=== PATIENT | female | born 1985 | race Caucasian/White ===

== ENCOUNTER 2021-07-06 15:49 | Emergency (ER) | payer OTHER, SELFPAY ==
[2021-07-06 15:56] VITALS: BP 148/84; PULSE 70; RESP 20; TEMP 36.8; O2SAT 100
--- NOTE | 2021-07-06 16:06 | ED.EAR ---
HPI - Ear Problem General Chief complaint: Ear Stated complaint: ear pain Time Seen by Provider: 07/06/21 16:03 Source: patient and RN notes reviewed Mode of arrival: ambulatory Limitations: no limitations History of Present Illness HPI Narrative: Celeste is a 35-year-old female patient who ambulated into the [facility]. Patient states on Thanksgiving she had pain in her right ear that lasted several days. It did get better. Patient states for the last week her ear has felt full and wet and itchy. Patient has been taking Benadryl. Patient states she had a friend look in her ear with out an otoscope and said that there were black blisters on her ear. MD Complaint: ear pain Related Data Allergies Allergy/AdvReac Type Severity Reaction Status Date / Time No Known Allergies Allergy Unknown Unverified 07/06/21 16:04 Review of Systems Review of Systems: CONSTITUTIONAL: Denies body aches, fever, chills, or sweats. EYES: Denies visual changes, redness, or discharge. ENT: Denies rhinorrhea, congestion, sore throat, o+ right otalgia. CARDIOVASCULAR: Denies chest pain, palpitations, or edema. RESPIRATORY: Denies cough or dyspnea. GASTROINTESTINAL: Denies abdominal pain, nausea, vomiting, or diarrhea. GENITOURINARY: Denies dysuria or hematuria. SKIN: Denies rash, itching, or wounds. MUSCULOSKELETAL: Denies back pain, joint pain, or myalgia. NEUROLOGIC: Denies headache, numbness, tingling, or weakness. PSYCH: Denies depression or anxiety. All systems reviewed & are unremarkable except as noted in HPI and below PMFSH Comments At time of signature, I have reviewed and agree with nursing past medical, surgical, social and family history unless otherwise noted. Please see nursing chart for further information. There is no relevant family history pertinent to the presenting complaint Exam Narrative: GENERAL: Well-appearing, well-nourished, and in no acute distress. HEAD: Normocephalic, atraumatic. EYES: EOMI. No redness or drainage. Conjunctivae normal. ENT: Mucous membranes pink and moist. Nares clear. No rhinorrhea. Bilateral tympanic membranes are dull with moderate bulging. No erythema is noted. Dark brown cerumen is noted in the right canal Throat normal. Uvula midline. NECK: Normal AROM. Supple. CHEST: No respiratory distress. MUSCULOSKELETAL: No bony tenderness. EXTREMITIES: Normal range of motion. No edema. SKIN: Warm, dry, no rash. Capillary refill normal. Normal skin turgor. NEURO: No focal deficits. Alert and oriented x3. Gait steady. PSYCH: Normal affect. No signs of depression or anxiety. Course Vital Signs Vital signs: Vital Signs Temperature 36.8 C 07/06/21 15:56 Pulse Rate 70 07/06/21 15:56 Respiratory Rate 20 07/06/21 15:56 Blood Pressure 148/84 H 07/06/21 15:56 Pulse Oximetry 100 07/06/21 15:56 Temperature 36.8 C 07/06/21 15:56 Pulse Rate 70 07/06/21 15:56 Respiratory Rate 20 07/06/21 15:56 Blood Pressure 148/84 H 07/06/21 15:56 Pulse Oximetry 100 07/06/21 15:56 Reviewed. Pt has been instructed to follow up with her PCP regarding her elevated blood pressure today. Medical Decision Making MDM Narrative Medical decision making narrative: Patient has a moderate amount of fluid in bilateral ears. No erythema is noted. This has been going on since . Patient will be treated with a short course of prednisone Differential Diagnosis Differential Diagnosis: Otitis media, otitis externa, eustachian tube dysfunction Vital Signs Vital Signs: Vital Signs Temperature 36.8 C 07/06/21 15:56 Pulse Rate 70 07/06/21 15:56 Respiratory Rate 20 07/06/21 15:56 Blood Pressure 148/84 H 07/06/21 15:56 Pulse Oximetry 100 07/06/21 15:56 Temperature 36.8 C 07/06/21 15:56 Pulse Rate 70 07/06/21 15:56 Respiratory Rate 20 07/06/21 15:56 Blood Pressure 148/84 H 07/06/21 15:56 Pulse Oximetry 100 07/06/21 15:56 Critical Care Time Cri
== END 2021-07-06 16:15 | disposition home or self-care (01) ==
PROVIDERS: Emergency Provider Nurse Practitioner Family
DX: H65.21 Chronic serous otitis media, right ear (principal)
CPT/HCPCS: 99213; G0463

== ENCOUNTER 2022-07-13 09:05 | Outpatient (CLI) | payer OTHER, SELFPAY ==
--- NOTE | 2022-07-13 09:13 | ECG_ITS ---
Measurements Intervals [place] Rate: 73 P: 24 SC: 147 QRS: 37 QRSD: 88 T: 56 QT: 362 QTc: 400 Interpretive Statements SINUS RHYTHM NORMAL ECG NO PREVIOUS ECG AVAILABLE FOR COMPARISON Electronically Signed On 07-13-2022 9:38:36 TILER'S ASSISTANT by Vasquez Amaya D.O.
== END 2022-07-13 09:06 | disposition home or self-care (01) ==
PROVIDERS: Visit Provider Obstetrics & Gynecology
DX: F17.200 Nicotine dependence, unspecified, uncomplicated (principal); N94.6 Dysmenorrhea, unspecified
CPT/HCPCS: 36415; 86850; 86900; 86901; 93005

== ENCOUNTER 2022-07-20 00:56 | Day surgery (SDC) | payer OTHER, SELFPAY ==
--- NOTE | 2022-07-12 09:13 | PC.NURSE ---
Addendum entered by Erika Landers RN 07/12/22 09:40: PT CALLED BACK WITH MEDICATIONS, INSTRUCTED NOT TO TAKE ANY OF HER MEDICATIONS THE MORNING OF SURGERY, NO MEDICATIONS THAT NEED TO BE STOPPED Original Note: Report to the Outpatient Waiting Room, entrance under the green pavilion located off [facility], at time _0830_ on date 07/20/22_. Planned Procedure Time: _1030_. Time changes happen often and if your time is changed the preop area will call you the afternoon before. - You and your visitor will be asked to self-screen and do not enter if you have any COVID symptoms. - Only one visitor is requested with a max of two and NO children visitors are allowed at this time. - The patient visitor may be requested to leave or wait in car when not with patient due to distancing restrictions. - A mask is optional within the hospital. Patients may have clear liquids (water, carbonated beverages, clear teas, apple juice) until 3 hours prior to surgery with a maximum of 20 ounces. - No food from midnight until time of surgery - Infants may have breast milk until 4 hours before surgery, infant formula 6 hours prior to surgery. - Children will be allowed to drink immediately following surgery. If applicable, please bring a bottle or sippy cup to assist with drinking. Juice, water, soda, and popsicles are readily available. For infants on formula, please bring formula the day of surgery. Pacifiers are allowed. Take the following medications with a SIP of water the morning of surgery: _PT DID NOT HAVE MED LIST WILL BE CALLING BACK WITH MEDICATIONS____ Medications to discontinue per physician Date to take last dose Please no make-up, nail korean, hairspray, perfume, deodorant, or body powder the day of surgery. No jewelry (including any body piercings) or valuables the day of surgery, leave them at home. Please take a shower or bath the night before, or the morning of, surgery with an antibacterial soap. Wear comfortable, loose fitting clothing. Children are encouraged to wear pajamas. - Jewelry must be removed prior to entering the operating room. Rings and piercings that are not removed may be cut off. - The hospital will not accept responsibility for valuables. - Please leave all valuables, including medications, at home the day of surgery. If you are going home after surgery, a licensed auto crane driver must drive you home. - NO public transportation without another adult if you receive anesthesia. - We recommend that an adult stay with you for 24 hours following discharge. - We also recommend that you do not drive, make important decision, drink alcoholic beverages, or take any drugs that were not prescribed by your health care provider for at least 24 hours after your discharge time. For Pediatric surgeries, we recommend two adults accompany the child home. Follow any additional instructions given to you from your surgeon. If you or anyone in your household have experienced Covid symptoms in the past week, please notify your surgeon or the nurse liaison at the phone number below for possible testing. Telephone instructions given to _BEER__and asked if any additional questions and then verbalized understanding. Patient advised to call surgeon office or pre surgery nurse liaison [phone] if any additional questions.
[2022-07-20] VITALS (8 sets, daily range): BP systolic 112–149; BP diastolic 64–101; PULSE 60–87; RESP 11–18; TEMP 36.1–36.9; O2SAT 95–100; BMI 40.4
--- NOTE | 2022-07-20 08:47 | P.PNAN_ITS ---
Anes - Initial Pre Proc Eval Procedure: Operation Date: 07/20/22 10:30 Proposed Procedures p Robotic Assisted Hysterectomy with Bilateral Salpingo Oophorectomy - Yasmine Lisa MD Date/Time: 07/20/22 08:47 Surgeon: Yasmine Lisa MD Pre Op Diagnosis: dysmenorrhea Patient Data Age: 36 Gender: F Height: Weight: Allergies Allergy/AdvReac Type Severity Reaction Status Date / Time No Known Allergies Allergy Unknown Unverified 07/20/22 08:46 Home Medications Medication Instructions Recorded Confirmed Type doxycycline hyclate 100 mg tablet 100 mg PO BID 07/12/22 07/12/22 History metformin 500 mg tablet 1,000 mg PO DAILY 07/12/22 07/12/22 History spironolactone 100 mg tablet 100 mg PO DAILY 07/12/22 07/12/22 History Patient hx anesthesia problems: none Family hx anesthesia problems: none Results Review: All pre-operative results and documents have been reviewed as part of the pre- operative evaluation. [facility] Past Medical History Medical History Obesity Smoker Surgical History Surgical History (Updated 07/20/22 @ 08:48 by Steven Myers MD) History of tubal ligation Social History Social History Smoking packs per day: 1 Smoking cigarettes per day: 20.0 Years smoked: 20 Smoking pack-years: 20.00 Smoking status: Current every day smoker Alcohol intake: current Alcohol use details: 4 PER YEAR Substance use: current Substance use type: marijuana Other substance usage details: DAILY Living arrangements: with family Anes - Eval Final PreProcedure Day of Procedure 07/20/22 08:47 Patient weight: obese Heart: regular rate and rhythm Lungs: clear to auscultation Airway: Mallampati scale class 1 Neurological: alert and oriented Last oral intake: >/= 8 hours ASA classification: III Emergent: no Anesthetic plan: proceed Anesthesia type and monitoring: general ETT and standard monitoring Results Review: All pre-operative results and documents have been reviewed as part of the pre- operative evaluation. Informed Consent: The patient's anesthetic plan and its attendant risks and benefits were discussed with the patient/family/POA. Questions were solicited and answers provided to the satisfaction of the patient/family/POA.
--- NOTE | 2022-07-20 09:06 | WPDHPUPDATE1 ---
History and Physical Update Update Date/Time: 07/20/22 09:06 History and Physical has been reviewed, including an updated exam of the patient. There are NO changes in the patient's condition. Risks, benefits, and alternatives have been discussed and questions answered. Patient agrees to proceed with procedure.
[2022-07-20] MEDS: LACTATED RINGERS 1,000 ML 30 ML IV CONT ×2 (09:15→14:04)
[2022-07-20] MEDS: KETOROLAC 15 MG/ML VIAL (*BKC) IV PUSH (09:16)
[2022-07-20] MEDS: ACETAMINOPHEN 500 MG TABLET 1000 MG PO (09:16)
[2022-07-20] MEDS: ceFAZolin 3 GM/D5W 100 ML 100 ML IVPB (09:45)
--- NOTE | 2022-07-20 14:07 | W.PM.PROC2 ---
Procedure Note - Detailed Date of Procedure 07/20/22 Pre-op Diagnosis dysmenorrhea, Post-op Diagnosis Same (Severe pelvic adhesions) Procedure Performed robotic assisted hysterectomy with bilateral salpingo-oophorectomy, adhesiolysis 2.5 hours Surgeon Yasmine Lisa MD Anesthesia General Indications heavy vaginal bleeding, pelvic pain Findings severe scarring throughout the pelvis, unrecognizable adnexal structures, tubes and ovaries were scarred together with pericolic fat. Adhesions between the rectum and the bilateral adnexa and the posterior uterus. Obliterated cul-de-sac with adhesions. Adhesions between the sigmoid colon and the lateral pelvic and abdominal sidewall Description of Procedure This patient was taken to the operating room. She was prepped and draped in the dorsal lithotomy position after induction of general anesthesia. The uterine manipulator and Jacqueline cup were placed. This was done with a speculum and tenaculum. The speculum was placed. The cervix was grasped with a tenaculum. The stay sutures were placed at 3 and 9:00 a.m.. The stay sutures of 0 Vicryl were tied to the appropriately Size scope after it was slipped around the cervix.. The tip of the BRENNA manipulator was placed in the intrauterine cavity. The cup was slid into place around the cervix and into the fornices. It was locked into place. The sutures were then wrapped around the handle and tied under tension. A 8 mm skin incision was made in the left upper quadrant the abdomen. a 5 mm Visiport trocar was inserted into abdominal cavity and pneumoperitoneum was achieved. A 8 mm supraumbilical incision was made and a 8 mm trocar was inserted into the intrauterine cavity under direct visualization of the scope. an 8 mm incision was made in the right upper quadrant of the abdomen and an 8 mm robotic trocar was placed the inter uterine cavity under direct visualization the scope. An 11 mm trocar was inserted in the right upper quadrant of the abdomen rectal is a hysteroscope after an incision was made there as well. The robot was docked. Electronic Orientation of the robot was performed. 2.5 hours of adhesiolysis was performed rectum from bilateral adnexa and uterus, tubes and ovaries from the lateral pelvic sidewall and the ureters bilaterally. colon from the lateral abdominal and pelvic sidewalls. This was all done with sharp and blunt dissection using cautery and scissors and bipolar cautery. Bilateral ureteral lysis was performed. This was done from the pelvic brim down to the uterine artery. This was done with careful dissection using sharp and blunt dissection.Bilateral salpingo-oophorectomy was performed. The bilateral infundibulopelvic ligaments were cauterized thoroughly and transected after visualization of the ureter passing over the pelvic brim. In stepwise fashion around the ovary the mesosalpinx was cauterized transected. The Fallopian tube tissue/ mesosalpinx was cauterized transected a stepwise fashion medially to the cornua of the uterus. the tube was transected at the cornua and cauterized thoroughly. The bilateral tubes and ovaries were taken out through the large air lock port. Then In a stepwise fashion along the lateral aspects of the uterus the round ligament and broad ligaments were cauterized transected down to the level of the uterine arteries. A bladder flap was created in the bladder was moved distally to the end of the cervix and over the Jacqueline cup. The bilateral uterine arteries were cauterized and transected. Colpotomy was then performed. In a circumferential fashion the vagina was transected using unipolar cautery. The incision was made down on the Jacqueline cup. The uterus and cervix were taken out through the vagina. A pneumo occluder was placed in the vagina. The vaginal cuff was closed with a 0 V lock suture in a running fashion. The pelvis was irrigated with copious amounts antibiotic irrigatio
[2022-07-20] MEDS: fentaNYL CITRATE INJ (*CRX) 100 MCG/2 ML VIAL 25 MCG IV PUSH ×8 (14:11→15:05)
[2022-07-20] MEDS: ONDANSETRON INJ 4 MG/2 ML VIAL IV PUSH ×2 (14:33→20:12)
[2022-07-20] MEDS: DEXTROSE 5%/0.45% SOD CHL 1,000 ML 125 ML IV CONT (15:30)
[2022-07-20] MEDS: SCOPOLAMINE 1.5 MG PATCH TRANSDERM (16:30)
[2022-07-20] MEDS: KETOROLAC 30 MG/ML VIAL (*BKC) IV PUSH ×2 (16:34→21:33)
[2022-07-20] MEDS: MORPHINE SULFATE (*CRX) 4 MG/ML INJ IV PUSH ×2 (17:30→21:34)
--- NOTE | 2022-07-20 17:51 | PC.NURSE ---
1730 Pt cursing at RN due to RN waking her up to ask her to extend arm so that IV fluids would infuse. RN ask that patient not use that type of language when addressing staff and explained that the interventions were to help her, not make her more uncomfortable.
[2022-07-21 01:00] VITALS: BP 128/77; PULSE 70; RESP 18; TEMP 36.7; O2SAT 100
[2022-07-21] MEDS: SIMETHICONE 80 MG TAB.CHEW ×2 (01:16→04:23)
[2022-07-21] MEDS: HYDROcodone/acetaminophen (*CRX) 10-325 MG TABLET 1 TAB PO (01:31)
[2022-07-21] MEDS: HYDROcodone/acetaminophen (*CRX) 5-325 MG TABLET 1 TAB PO ×2 (04:22→08:30)
[2022-07-21] MEDS: IBUPROFEN 600 MG TABLET PO (04:23)
[2022-07-21 04:35] VITALS: BP 129/59; PULSE 88; RESP 18; TEMP 36.8; O2SAT 99
[2022-07-21 08:30] VITALS: BP 130/68; PULSE 61; RESP 18; TEMP 36.6; O2SAT 100
[2022-07-21] MEDS: ESTRADIOL 7 DAY 0.05 MG PATCH TRANSDERM (08:33)
--- NOTE | 2022-07-21 09:16 | WPDANESPN ---
Anes - Prog Note Post-Op Date/Time: 07/21/22 09:16 Cardiovascular status: normal Respiratory status: normal Airway patency: baseline Mental status: baseline Post-Op hydration status: normal Vital Signs: Last Vital Signs Temp 36.8 C 07/21/22 04:35 Pulse 88 07/21/22 04:35 Resp 18 07/21/22 04:35 BP 129/59 L 07/21/22 04:35 Pulse Ox 99 07/21/22 04:35 O2 Del Method Room Air 07/20/22 15:30 O2 Flow Rate 6 07/20/22 14:15 Pain Score (VAS): 3 I/O: Intake & Output 07/20/22 07/21/22 07/21/22 23:59 07:59 15:59 Intake Total 0 700 Output Total 350 1350 Balance -350 -650 Post-procedural complaints: none Patient Feedback: Patient satisfied with anesthetic care.
--- NOTE | 2022-07-21 10:29 | PM.GYNPNOP ---
BOOKKEEPING CLERKS SUPERVISOR - A/P Postoperative Procedures: Procedures Operation Date: 07/20/22 10:30 Actual Procedure Side Surgeon p Robotic Assisted Hysterectomy with Bilateral Salpingo Oophorectomy Bilateral Yasmine Lisa MD Postoperative day: 1 Postoperative status: doing well Postoperative plan: see orders Time Spent With Patient Time: Total time spent is greater than 50% in coordination of care (as documented) at patient's floor/unit and/or counseling patient: Time with patient: 15 - 25 minutes BOOKKEEPING CLERKS SUPERVISOR- PN:Subj Post-Op Subjective Date/time seen: 07/21/22 10:29 Subjective: patient reports feeling better, patient has no complaints and pain is well controlled Exam Const: General: healthy appearing, comfortable and no acute distress Resp: Auscultation: clear to auscultation bilaterally, no rales, no rhonchi and no wheezes Cardio: Rate: regular rate Heart sounds: no click, no murmurs and no rubs GI: Inspection: non-distended Auscultation: normal bowel sounds Extrem: General: normal to inspection, no pedal edema and no calf tenderness BOOKKEEPING CLERKS SUPERVISOR - PN: Obj Data Vital Signs Vital Signs: Vital Signs - 24 hr 07/20/22 14:04 07/20/22 14:15 07/20/22 14:30 Temperature 98.5 F Pulse Rate 73 87 76 Respiratory Rate 11 L 17 14 Blood Pressure 149/101 H 117/81 115/65 Pulse Oximetry 100 100 95 Oxygen Delivery Simple Face Mask Simple Face Mask Room Air Oxygen Flow Rate 6 6 07/20/22 14:45 07/20/22 15:00 07/20/22 15:30 Temperature Pulse Rate 72 75 75 Respiratory Rate 12 12 12 Blood Pressure 125/71 112/73 Pulse Oximetry 95 100 100 Oxygen Delivery Room Air Room Air Room Air Oxygen Flow Rate 07/20/22 15:30 07/20/22 20:00 07/21/22 01:00 Temperature 97.3 F L 97.1 F L 98.1 F Pulse Rate 78 60 70 Respiratory Rate 18 18 18 Blood Pressure 138/77 137/64 128/77 Pulse Oximetry 100 100 100 Oxygen Delivery Oxygen Flow Rate 07/21/22 04:35 07/21/22 08:30 07/21/22 08:30 Temperature 98.3 F 97.8 F Pulse Rate 88 61 Respiratory Rate 18 18 Blood Pressure 129/59 L 130/68 Pulse Oximetry 99 100 Oxygen Delivery Room Air Oxygen Flow Rate Intake/Output Intake/Output: Intake & Output 07/18/22 07/19/22 07/20/22 07/21/22 23:59 23:59 23:59 23:59 Intake Total 700 700 Output Total 1270 1350 Balance -570 -650 Meds/Results Medications: Active Medications Generic Name Dose Route Start Last Admin Trade Name Freq PRN Reason Stop Dose Admin Hydrocodone Bitart/Acetaminophen 1 tab 07/20/22 15:13 07/21/22 08:30 Hydrocodone/Acetaminophen (*Crx) 5-325 Mg Tablet PO 1 tab Q3H PRN Administration Pain Rated 5 or Less Hydrocodone Bitart/Acetaminophen 1 tab 07/20/22 15:13 07/21/22 01:31 Hydrocodone/Acetaminophen (*Crx) 10-325 Mg Tablet PO 1 tab Q3H PRN Administration Pain Rated 6 or Greater Estradiol 0.05 mg 07/20/22 15:13 07/21/22 08:33 Estradiol 7 Day 0.05 Mg Patch TRANSDERM 0.05 mg WEEKLY MATTY Administration Ibuprofen 600 mg 07/20/22 15:13 07/21/22 04:23 Ibuprofen 600 Mg Tablet PO 600 mg Q6H PRN Administration Cramping Ketorolac Tromethamine 30 mg 07/20/22 15:13 07/20/22 21:33 Ketorolac 30 Mg/Ml Vial (*Bkc) IV PUSH 07/25/22 15:12 30 mg Q6H PRN Administration Pain Rated 4-6 Morphine Sulfate 4 mg 07/20/22 17:22 07/20/22 21:34 Morphine Sulfate (*Crx) 4 Mg/Ml Inj IV PUSH 4 mg Q4H PRN Administration Pain Rated 7-10 Naloxone HCl 0.1 mg 07/20/22 15:13 Naloxone Hcl 0.4 Mg/Ml Vial IV PUSH Q2M PRN Respiratory rate less than 10 Ondansetron HCl 4 mg 07/20/22 15:13 07/20/22 20:12 Ondansetron Inj 4 Mg/2 Ml Vial IV PUSH 4 mg Q6H PRN Administration Nausea And Vomiting
== END 2022-07-21 10:55 | disposition home or self-care (01) ==
LOC: ANHSURGERY 08:28 → ANHOB2 15:19
PROVIDERS: PCP Nurse Practitioner Family; Visit Provider Obstetrics & Gynecology
PROC: (CPT 58571; principal; 2022-07-20 10:30)
DX: N94.6 Dysmenorrhea, unspecified (principal); N92.0 Excessive and frequent menstruation with regular cycle; R10.2 Pelvic and perineal pain; N73.6 Female pelvic peritoneal adhesions (postinfective); D25.9 Leiomyoma of uterus, unspecified; E66.9 Obesity, unspecified; Z68.41 Body mass index [BMI] 40.0-44.9, adult; F17.210 Nicotine dependence, cigarettes, uncomplicated; F10.90 Alcohol use, unspecified, uncomplicated; F12.90 Cannabis use, unspecified, uncomplicated; Z79.1 Long term (current) use of non-steroidal anti-inflammatories (NSAID); Z79.899 Other long term (current) drug therapy
CPT/HCPCS: 58571; S2900; 88307; 99199; A9270; J0690; J1100; J1885; J2250; J2270; J2405; J2704; J2710; J3010; J7030; J7120

== ENCOUNTER 2023-11-19 20:02 | Emergency (ER) | payer OTHER, SELFPAY ==
--- NOTE | ~2023-11-19 | XR_ITS ---
EXAM: XR elbow LT min 3V DATE: 11/19/2023 20:20 HISTORY: hit elbow on car door 11-16-23 . COMPARISON: None available. FINDINGS: Normal mineralization. No fracture or dislocation. No lytic or blastic lesion. Joint space s are maintained. No erosion or periosteal change. Soft tissues within normal limits. IMPRESSION: Normal left elbow radiograph findings. Reviewed, dictated and finalized at location K.
[2023-11-19 20:05] VITALS: BP 144/91; PULSE 86; RESP 20; TEMP 36.3; O2SAT 98
--- NOTE | 2023-11-19 20:10 | ED.UPPEXIN ---
HPI - Extremity Injury (Upper) General Chief Complaint: Extremity Injury, Upper Stated Complaint: left elbow pain Source: patient Mode of arrival: ambulatory Limitations: no limitations History of Present Illness HPI narrative: 37 years old white female drove herself to the emergency room complaining of pain at the back of left elbow after got hit by her car door while trying to close a door. She denies other injuries. Four days ago. Patient denies any tingling, numbness or weakness of the upper extremity. Related Data Home Medications Medication Instructions Recorded Confirmed doxycycline hyclate 100 mg tablet 100 mg PO BID 07/12/22 07/20/22 metformin 500 mg tablet 1,000 mg PO DAILY 07/12/22 07/20/22 spironolactone 100 mg tablet 100 mg PO DAILY 07/12/22 07/20/22 Allergies Allergy/AdvReac Type Severity Reaction Status Date / Time No Known Allergies Allergy Unknown Unverified 07/20/22 08:46 Review of Systems Review of Systems: All systems reviewed & are unremarkable except as noted in HPI and below PMFSH Past Medical History Medical History Obesity Smoker Surgical History Surgical History History of tubal ligation Social History Social History Smoking packs per day: 1 Smoking cigarettes per day: 20.0 Years smoked: 20 Smoking pack-years: 20.00 Smoking status: Current every day smoker Alcohol intake: current Alcohol use details: 4 PER YEAR Substance use: current Substance use type: marijuana Other substance usage details: DAILY Living arrangements: with family Exam Narrative: General appearance: Well-developed, well-nourished Skin: Normal color Vascular: Normal peripheral pulses, normal capillary refill. 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 Critical Care Time Critical Care Time Critical Care Time: No Discharge Plan Discharge Clinical Impression: Contusion of elbow, left Patient Disposition: Home, Self-Care Condition: Stable Instructions: Contusion in Adults (ED) Additional Instructions: Return if symptoms are worsening , call your family physician for appointment, take Tylenol as as needed for aches and pain, continue home medications. take ibuprofen 600 every 6 hours as needed Prescriptions: No Action metformin 500 mg Tablet 1,000 mg PO DAILY Rx Instructions: FOR OVARIAN CYSTS spironolactone 100 mg Tablet 100 mg PO DAILY doxycycline hyclate 100 mg Tablet 100 mg PO BID hydrocodone-acetaminophen 5-325 mg tablet 1 - 2 tablet PO Q6H PRN (Reason: pain) Qty: 25 0RF Follow-up/Referrals: Darci,Carrie Lentz APN [Primary Care Provider] -
[2023-11-19 20:40] VITALS: BP 144/91; PULSE 78; RESP 20; TEMP 36.3; O2SAT 98
== END 2023-11-19 20:40 | disposition home or self-care (01) ==
LOC: CHSED 20:42
PROVIDERS: Emergency Provider Emergency Medicine; PCP Nurse Practitioner Family
DX: S50.02XA Contusion of left elbow, initial encounter (principal); W20.8XXA Other cause of strike by thrown, projected or falling object, initial encounter; E66.01 Morbid (severe) obesity due to excess calories; Z68.41 Body mass index [BMI] 40.0-44.9, adult; F17.210 Nicotine dependence, cigarettes, uncomplicated; F12.90 Cannabis use, unspecified, uncomplicated; Z79.84 Long term (current) use of oral hypoglycemic drugs
CPT/HCPCS: 73080; 99283

== ENCOUNTER 2025-01-13 12:24 | Emergency (ER) | payer SELFPAY ==
--- OUTSIDE RECORDS SUMMARY | 2025-01-13 12:27 | XMS_ITS | Data Portability ---
Author Organization [facility] JOSELOVinceLadonia H Address [address] [place] [id number] Care Team Providers Care Customer Account Technician Name Role Phone [facility] SATNAM DAO Pipe Fitter Helper PEGGY RAVI Primary Care Provider Unavail able Assessment Encounter Date Assessment Date Assessment LastModified by Organization Details LastModified Time 05/18/2024 05/18/2024 Tdap immunization offered patient agreeable. Unfortunately, due to office low supply; Tdap vaccine is being reserved for and children. Recommend contacting pharmacy of choice. I personally saw and examined pt w/resident. Documentation was reviewed, and I agree w/resident's note. Dr. Purcell [email or web address] Not available 05/19/2024 14:06:41 Plan of Treatment Reminders Order Date Submit Date Provider Last Modified By Organization Details Last Modified Time Details Appointments None recorded . Lab urinalys is, dipstick 2023 024 In-Office Order, Internal Use Only DO Not Attach Compendium DO Not Attach Compendium, Do Not Delete/merge, [id number] 13:05:28 culture, urine 2023 024 [facility], [address], [place], [address], 4 09:27:52 HbA1c (hemoglo bin A1c), blood 2023 024 [facility], [address], [place], [address], 4 04:09:32 CMP, serum or plasma 2023 024 [facility], [address] [facility], [facility] [address], [place], [address], 4 03:08:38 TSH, ultra-se nsitive, serum 2023 024 [facility], [address] [facility] [address], [place], [address], 4 04:09:31 CBC 2023 024 [facility], [address] [facility], [facility] [address], [place], [address], 4 03:08:39 lipid panel, serum 2023 024 [facility], [address] [facility] [address], [place], [address], 4 03:08:37 Referral dermatol ogist referral 2024 025 [facility] (D[facility]ology Cam), [address] [place] [address], [place], [address], 5 08:42:02 pain manageme nt referral - No back imaging on file 2023 024 [facility], [address] [facility], [place], [address], 5 12:50:26 Procedures None recorded . Surgeries None recorded . Imaging CT, head + brain, w/o contrast 2023 024 [email or web address] Rudd (Radiology), [address] [facility] [place], [address], 4 09:36:08 XR, foot, 3 or more view 2023 024 KANA Rudd (Radiology), [address] [facility] [place], [address], 4 17:58:43 Medication Orders clindamy geovanna 1 % topical gel 2023 025 [facility][id number], [address], [place], [place], [id number], 5 09:02:54 doxycycl ine monohydr ate 100 mg capsule 2023 024 [facility] #89806, [address], [place], [place], [id number], 4 16:50:28 Macrobid 100 mg capsule 2023 [facility] #[id number], [address], [place], [place], [id number], 4 16:41:25 Medrol ([place]) 4 mg tablets in a dose pack 2023 [facility] #66509, [address], [place], [place], [id number], 4 16:40:42 cycloben zaprine 10 mg tablet 2023 024 [facility], [address], [place], [place], [id number], 4 14:04:22 naproxen 500 mg tablet [email or web address] [facility] #24083, [address], [place], [place], [id number], 5 10:08:38 Patient TargetsNo targets recorded. Patient Instructions Encounter Date Encounter Id Patient Instructions Last Modified By Organization Details Last Modified Time 10/22/2023 [id number] learning about high blood sugar Not available 10/22/2023 09:16:22 A healthy lifestyle: care instructions Not available 10/22/2023 09:16:22 Quitting Tobacco : Care Instructions Not available 10/22/2023 09:18:19 - Avoid heavy lifting and over-exertion. - Avoid bed-rest do some gentle stretching and continue with normal activities. - Use ice to relieve pain, 15 minutes every 2 4 hours. - Use heat to relax muscles, 15 minutes every 2 4 hours. - Sleep on a firm surface and avoid lying on the sofa. Not available 10/22/2023 09:16:30 dwp labs needed, plan pending results Not available 10/22/2023 09:16:42 01/07/2024 [id number] painful urinatio n (dysuria): care instructions [email or web address] Not available 01/07/2024 13:05:28 Rest- Rest your injured body part. Ice Apply a cold gel pack, bag of ice, or bag of frozen vegetables every 1 to 2 hours, for 15 minutes each time. Put a thin towel between the ice (or other cold object) and your skin. Use the ice (or other cold object) for at least 6 hours after your injury. Some people find it helpful to ice longer, even up to 2 days after their injury. Compression Compression basically means pressure. You want to have slight pressure by having it wrapped in an elastic compression bandage. It's important that you do not use too much pressure and cut off the blood flow to body part. Elevation Elevation means you should keep your injury body part raised up above the level of your heart. Not available 01/13/2024 15:27:57 follow up as needed Not available 01/13/2024 15:28:19 04/08/2024 [id number] A healthy lifestyle: care instructions Not available 04/08/2024 17:03:00 Increase intake of fresh fruits, and vegetables. Avoid packaged foods and fast foods. Follow a low salt diet, drink at least 8-10 8oz glasses of water a day, exercise most days of the week. Take all medications as prescribed. Keep appointments with PCP and all specialists. Not available 04/27/2024 18:12:48 Plan pending imaging results. f/u as needed DWP barriers to care: none Not available 04/27/2024 18:13:01 05/18/2024 [id number] Quitting Tobacco : Care Instructions [email or web address] Not available 05/18/2024 15:16:45 A healthy lifestyle: care instructions Not available 05/18/2024 15:16:45 08/18/2024 [id number] Quitting Tobacco : Care Instructions [email or web address] Not available 08/18/2024 10:06:57 A healthy lifestyle: care instructions [email or web address] Not available 08/18/2024 10:06:57 I saw the patien t with the resident. 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 Referral for H idradenitis suppurativa of multiple sites Referring Physician: Peggy Rai Hotbed Operator, Encounter Date: 08/18/2024 Results Created Date Observation Date Name Description Value Unit Range Abnormal Flag Note LastModifiedBy Organization Detail LastModifiedTime 10/22/19 24 10/22/2023 LIPID PANEL cholesterol, total 218 mg/dL 100-19 9 above high normal Not Available [facility] Department [address] [place], [address], 10/23/2023 03:08:37 10/22/19 24 10/22/2023 LIPID PANEL triglyceride s 115 mg/dL 0-149 Not Available [facility] Department [address] [place], [address], 10/23/2023 03:08:37 10/22/19 24 10/22/2023 LIPID PANEL HDL cholesterol 46 mg/dL 40-999 Not Available [facility] Department [address] [place], [address], 10/23/2023 03:08:37 04/16/20 24 10/22/2023 LIPID PANEL VLDL cholesterol neno 23 mg/dL 5-40 Not Available [facility] Department [address] [place] [address], [address], 10/23/2023 03:08:37 10/22/19 24 10/22/2023 LIPID PANEL LDL chol calc (nih) 164 mg/dL 0-99 above high normal Not Available [facility] Department [address] [place] [address], [address], 10/23/2023 03:08:37 10/22/19 24 10/22/2023 COMP. METAB OLIC PANEL (14) glucose 90 mg/dL 70-99 Not Available [facility] Department [address] [place] [address], [address], 10/23/2023 03:08:38 10/22/19 24 10/22/2023 COMP. METAB OLIC PANEL (14) BUN 16 mg/dL 6-20 Not Available [facility] Department [address] [place] [address], [address], 10/23/2023 03:08:38 10/22/19 24 10/22/2023 COMP. METAB OLIC PANEL (14) creatinine 0.89 mg/dL 0.76-1 .27 Not Available [facility] Department [address] [place] [address], [address], 10/23/2023 03:08:38 10/22/19 24 10/22/2023 COMP. METAB OLIC PANEL (14) eGFR 87 >=60 Units for eGFR value s are mL/mi n/1.7 3 The eGFR Calcu latio n has not been valid ated for patie nts under the age of 18. If test resul ts are displ ayed for a patie nt under the age of 18, disre francois that value . Not Available [facility] Department [address] [place] [address], [address], 10/23/2023 03:08:38 10/22/19 24 10/22/2023 COMP. METAB OLIC PANEL (14) BUN/creatini ne ratio 18 9-23 Not Available [facility] Department [address] [place], [address], 10/23/2023 03:08:38 10/22/19 24 10/22/2023 COMP. METAB OLIC PANEL (14) sodium 142 mmol/ L 134-14 4 Not Available [facility] Department [address] [place] [address], [address], 10/23/2023 03:08:38 10/22/19 24 10/22/2023 COMP. METAB OLIC PANEL (14) potassium 4.7 mmol/ L 3.5-5. 2 Not Available [facility] Department [address] [place] [address], [address], 10/23/2023 03:08:38 10/22/19 24 10/22/2023 COMP. METAB OLIC PANEL (14) chloride 100 mmol/ L 96-106 Not Available [facility] Department [address] [place], [address], 10/23/2023 03:08:38 10/22/19 24 10/22/2023 COMP. METAB OLIC PANEL (14) carbon dioxide, total 25 mmol/ L 20-29 Not Available [facility] Department [address] [place] [address], [address], 10/23/2023 03:08:38 10/22/19 24 10/22/2023 COMP. METAB OLIC PANEL (14) calcium 9.8 mg/dL 8.7-10 .2 Not Available [facility] Department [address] [place] [address], [address], 10/23/2023 03:08:38 10/22/19 24 10/22/2023 COMP. METAB OLIC PANEL (14) protein, total 7.5 g/dL 6.0-8. 5 Not Available [facility] Department [address] [place] [address], [address], 10/23/2023 03:08:38 10/22/19 24 10/22/2023 COMP. METAB OLIC PANEL (14) albumin 4.6 g/dL 3.9-4. 9 Not Available [facility] Department [address] [place] [address], [address], 10/23/2023 03:08:38 10/22/19 24 10/22/2023 COMP. METAB OLIC PANEL (14) globulin, total 2.9 g/dL 1.5-4. 5 Not Available [facility] Department [address] [place] [address], [address], 10/23/2023 03:08:38 10/22/19 24 10/22/2023 COMP. METAB OLIC PANEL (14) A/G ratio 1.6 1.2-2. 2 Not Available [facility] Department [address] [place] [address], [address], 10/23/2023 03:08:38 10/22/19 24 10/22/2023 COMP. METAB OLIC PANEL (14) bilirubin, total 0.4 mg/dL 0.0-1. 2 Not Available [facility] Department [address] [place] [address], [address], 10/23/2023 03:08:38 10/22/19 24 10/22/2023 COMP. METAB OLIC PANEL (14) alkaline phosphatase 78 IU/L 44-121 Not Available [facility] Department [address] [place] [address], [address], 10/23/2023 03:08:38 10/22/19 24 10/22/2023 COMP. METAB OLIC PANEL (14) AST (SGOT) 27 IU/L 0-40 Not Available [facility] Department [address] [place] [address], [address], 10/23/2023 03:08:38 10/22/19 24 10/22/2023 COMP. METAB OLIC PANEL (14) ALT (SGPT) 38 IU/L 0-32 above high normal Not Available [facility] [address] [place], [address], 10/23/2023 03:08:38 10/22/19 24 10/22/2023 CBC, NO DIFFE RENTI AL/PL ATELE T WBC 7.0 x10e3 /uL 3.4-10 .8 Not Available [facility] [address] [place], [address], 10/23/2023 03:08:39 10/22/19 24 10/22/2023 CBC, NO DIFFE RENTI AL/PL ATELE T RBC 4.70 x10e6 /uL 3.77-5 .28 Not Available [facility] [address] [place], [address], 10/23/2023 03:08:39 10/22/1910/22/2023 CBC, NO DIFFE RENTI AL/PL ATELE T hemoglobin 14.9 g/dL 11.1-1 5.9 Not Available [facility] [address] [place], [address], 10/23/2023 03:08:39 10/22/1910/22/2023 CBC, NO DIFFE RENTI AL/PL ATELE T hematocrit 46.7 % 34.0-4 6.6 above high normal Not Available [facility] [address] [place], [address], 10/23/2023 03:08:39 10/22/1910/22/2023 CBC, NO DIFFE RENTI AL/PL ATELE T MCV 99 fL 79-97 above high normal Not Available [facility] Department [address] [place], [address], 10/23/2023 03:08:39 10/22/19 24 10/22/2023 CBC, NO DIFFE RENTI AL/PL ATELE T MCH 31.7 pg 26.6-3 3.0 Not Available [facility] Department [address] [place], [address], 10/23/2023 03:08:39 10/22/19 24 10/22/2023 CBC, NO DIFFE RENTI AL/PL ATELE T MCHC 31.9 g/dL 31.5-3 5.7 Not Available [facility] [address] [place], [address], 10/23/2023 03:08:39 10/22/19 24 10/22/2023 CBC, NO DIFFE RENTI AL/PL ATELE T RDW 13.5 % 11.5-1 4.5 Not Available [facility] [address] [place], [address], 10/23/2023 03:08:39 10/22/19 24 10/22/2023 CBC, NO DIFFE RENTI AL/PL ATELE T NRBC 0 % 0-0 Not Available [facility] [address] [place], [address], 10/23/2023 03:08:39 10/22/1910/23/2023 TSH RFX ON ABNOR MAL TO FREE T4 TSH 13.900 uIU/m L 0.450- 4.500 above high normal Not Available [facility] ([facility]) [address] [facility], [place], [address], 10/23/2023 04:09:31 10/22/1910/23/2023 HEMOG LOBIN A1C hemoglobin A1C 6.1 % 4.8-5. 6 above high normal Predi abete s: 5.7 - 6.4 Diabe jewell: >6.4 Glyce juan contr ol for adult s with diabe jewell: <7.0 Not Available [facility] ([facility]) [address] [facility], [place], [address], 10/23/2023 04:09:32 10/22/19 24 10/23/2023 T4F T4,free (direct) 0.92 NG/dL 0.82-1 .77 Not Available [facility] ([facility]) [address] [facility], [place], [address], 10/23/2023 04:09:33 01/07/20 24 01/07/2024 urina lysis , dipst ick Leukocytes Trace Not Available In-Offi ce Order Internal Use Only DO Not Attach Compendium DO Not Attach Compendium, Do Not Delete/merge, 01/07/2024 12:57:16 01/07/20 24 01/07/2024 urina lysis , dipst ick Nitrite positi ve Not Available In-Office Order Internal Use Only DO Not Attach Compendium DO Not Attach Compendium, Do Not Delete/merge, 01/07/2024 12:57:16 01/07/20 24 01/07/2024 urina lysis , dipst ick Urobilinogen .2 Not Available In-Of fice Order Internal Use Only DO Not Attach Compendium DO Not Attach Compendium, Do Not Delete/merge, 01/07/2024 12:57:16 01/07/20 24 01/07/2024 urina lysis , dipst ick Protein Negati ve Not Available In-Office Order Internal Use Only DO Not Attach Compendium DO Not Attach Compendium, Do Not Delete/merge, 01/07/2024 12:57:16 01/07/20 24 01/07/2024 urina lysis , dipst ick pH 7.0 Not Available In-Office Order Internal Use Only DO Not Attach Compendium DO Not Attach Compendium, Do Not Delete/merge, 01/07/2024 12:57:16 01/07/20 24 01/07/2024 urina lysis , dipst ick Blood Negati ve Not Available In-Office Order Internal Use Only DO Not Attach Compendium DO Not Attach Compendium, Do Not Delete/merge, 01/07/2024 12:57:16 01/07/20 24 01/07/2024 urina lysis , dipst ick Specific Price 1.015 Not Available In-Off ice Order Internal Use Only DO Not Attach Compendium DO Not Attach Compendium, Do Not Delete/merge, 01/07/2024 12:57:16 01/07/20 24 01/07/2024 urina lysis , dipst ick Ketone Negati ve Not Available In-Office Order Internal Use Only DO Not Attach Compendium DO Not Attach Compendium, Do Not Delete/merge, 01/07/2024 12:57:16 01/07/20 24 01/07/2024 urina lysis , dipst ick Bilirubin Negati ve Not Available In-Office Order Internal Use Only DO Not Attach Compendium DO Not Attach Compendium, Do Not Delete/merge, 01/07/2024 12:57:16 01/07/20 24 01/07/2024 urina lysis , dipst ick Glucose Negati ve Not Available In-Office Order Internal Use Only DO Not Attach Compendium DO Not Attach Compendium, Do Not Delete/merge, 01/07/2024 12:57:16 01/07/20 24 01/07/2024 urina lysis , dipst ick Appearance Clear Not Available In-Offi ce Order Internal Use Only DO Not Attach Compendium DO Not Attach Compendium, Do Not Delete/merge, 01/07/2024 12:57:16 01/07/2001/07/2024 urina lysis , dipst ick Color Dark Yellow Not Available In-Office Order Internal Use Only DO Not Attach Compendium DO Not Attach Compendium, Do Not Delete/merge, [id number] 01/07/2024 12:57:16 07/21/1907/21/2024 Thyro xine (T4) free [Mass /volu me] in Serum or Plasm a thyroxine (T4) free [mass/volume ] in serum or plasma 0.8 NG/dL low: 0.7NG/ dLhigh : 1.9NG/ dL T4 FREE 0.8 0.7 - 1.9 ng/dL 07/21 5:32 PM CIVIL ENGINEER [facility] Not Available Not Available 09/22/2024 08:41:28 07/21/19 25 07/21/2024 Thyro xine (T4) free [Mass /volu me] in Serum or Plasm a interpretati on and review of laboratory results Normal Not Available Not Available 09/05 08:41:28 07/21/19 25 07/21/2024 Thyro tropi n [Unit s/vol ume] in Serum or Plasm a thyrotropin [units/volum e] in serum or plasma 5.822 text: 0.300 - 5.000 mIU/L high TSH 5.822 (H) 0.300 - 5.000 mIU/L 07/21 5:32 PM CIVIL ENGINEER [facility] Not Available Not Available 09/22/2024 08:41:28 07/21/19 25 07/21/2024 Thyro tropi n [Unit s/vol ume] in Serum or Plasm a interpretati on and review of laboratory results Abnorm al Not Available Not Available 08:41:28 07/21/19 25 07/22/2024 Triio dothy blayne e (T3) [Mass /volu me] in Serum or Plasm a triiodothyro nine (T3) [mass/volume ] in serum or plasma 140 NG/dL low: 40NG/d Lhigh: 193NG/ dL T3 140 40 - 193 ng/dL 07/22 2:42 AM CIVIL ENGINEER [facility] Not Available Not Available 09/22/2024 08:41:27 07/21/19 25 07/22/2024 Triio dothy blayne e (T3) [Mass /volu me] in Serum or Plasm a interpretati on and review of laboratory results Normal Not Available Not Available 09/05 08:41:27 08/12/19 25 08/12/2024 lab resul t rf 6 normal Not Available Not Availa ble 08/12/2024 16:30:21 10/11/19 25 10/10/2024 Thyro xine (T4) free [Mass /volu me] in Serum or Plasm a thyroxine (T4) free [mass/volume ] in serum or plasma 0.7 NG/dL low: 0.7NG/ dLhigh : 1.9NG/ dL T4 FREE 0.7 0.7 - 1.9 ng/dL 10/10 12:24 PM [facility] Not Available Not Available 10/14/2024 08:19:31 10/11/1910/10/2024 Thyro xine (T4) free [Mass /volu me] in Serum or Plasm a interpretati on and review of laboratory results Normal Not Available Not Available 03/2025 08:19:31 10/11/1910/10/2024 Thyro tropi n [Unit s/vol ume] in Serum or Plasm a thyrotropin [units/volum e] in serum or plasma 4.703 text: 0.300 - 5.000 mIU/L TSH 4.703 0.300 - 5.000 mIU/L 10/10 12:24 PM CDT [facility] Not Available Not Available 10/14/2024 08:19:31 10/11/1910/10/2024 Thyro tropi n [Unit s/vol ume] in Serum or Plasm a interpretati on and review of laboratory results Normal Not Available Not Available 03/2025 08:19:31 10/11/1910/11/2024 Triio dothy blayne e (T3) [Mass /volu me] in Serum or Plasm a triiodothyro nine (T3) [mass/volume ] in serum or plasma 148 NG/dL low: 40NG/d Lhigh: 193NG/ dL T3 148 40 - 193 ng/dL 10/11 1:28 AM CDT [facility] Not Available Not Available 10/14/2024 08:19:31 10/11/19 25 10/11/2024 Triio dothy blayne e (T3) [Mass /volu me] in Serum or Plasm a interpretati on and review of laboratory results Normal Not Available Not Available 03/2025 08:19:31 11/20/19 24 11/19/2023 XR, elbow No observ ation record ed. [email or web address] [address] [facility], [place], [address], 11/27/2023 12:03:11 04/24/20 24 04/22/2024 XR, foot, 3 or more view No observ ation record ed. [address] [place], [address], 04/27/2024 17:17:09 05/12/20 24 05/11/2024 MRI, elbow , w/o contr ast No observ ation record ed. [address] [place], [address], 05/20/2024 18:19:24 Result Notes None recorded. Problems Name Problem SNOMED Code Status Onset Date Resolution Date Notes Provider Name and Address Organization Details Recorded Time Hypothyr oidism 51617920 Active PEGGY RAI MD Attn: Rajni guillen,[address] [facility], [place], [address], [place] - [facility] 4 16:59:44 Liver enzymes outside referenc e range 568412093 Completed 08/18/2024 PEGGY RAI MD Attn: Rajni guillen,[address] [facility], [place], [address], [place] - [facility] 5 10:02:25 Hypergly cemia 12989899 Completed 05/18/2024 PEGGY RAI MD Attn: Rajni guillen,[address] [facility], [place], [address], [place] [facility] 4 16:59:33 Hyperlip idemia 26294545 Active PEGGY RAI MD Attn: Rajni guillen,[address] [facility], [place], [address], [place] [facility] 5 10:02:13 Obesity 007947402 Active 2021 Carrie Bejarano APN, MOHS SURGEON/GENERAL DERMATOLOGIST-C Attn: Rajni guillen,[address] [facility], [place], [address], [place] - [facility] 2 15:34:31 Hidraden itis suppurat eddie of multiple sites Active 2024 PEGGY RAI MD Attn: Rajni guillen,[address] [facility], [place], [address], [place] - [facility] 5 10:03:19 Hydronep hrosis 14997722 Completed 04/24/2016 Removal Reason: resolved Christine Coleman PA-C Attn: Rajni g,[address] [facility], [place], [address], [place] - [facility] 6 22:15:09 Otitis media 29399864 Completed 04/24/2016 Removal Reason: resolved Christine Coleman PA-C Attn: Rajni g,[address] [facility], [place], [address], [facility] - [facility] 6 22:14:13 Spasm of back muscles 022237927 Completed 04/24/2016 Removal Reason: resolved Christine Coleman PA-C Attn: Rajni guillen,[address] [facility], [place], [address], [place] [facility] 6 22:14:48 Tinea corporis 72975994 Active Romana Mittal [facility], [place] - [facility] 6 16:06:20 Problem Notes None recorded. Procedures Surgical History Date Name Laterality Status Provider Name and Address Organization Details Recorded Time 07/20/19 23 Total hysterectomy completed Carrie Bejarano APN, SISIC Attn: Accounting,[address] [facility], [place], [address], [place] - [facility] 07/26/2022 12:56:54 07/08/19 23 Date of Last Pap Smear completed NED Travis [place] - [facility] 05/18/2024 14:06:26 07/23/19 19 Nebulizer tx completed Christine Coleman PA-C Attn: Accounting,[address] [facility], [place], [address], [place] - [facility] 07/23/2018 10:37:01 07/08/19 13 Tubal Ligation completed Christine Coleman PA-C Attn: Accounting,[address] [facility], [place], [address], [facility] - [facility] 09/03/2016 16:21:40 07/08/19 Other completed Lu Altamirano [place] - [email or web address] 04/25/2016 15:48:29 Imaging Results None recorded. Procedure Notes None recorded. Medical Equipment None Reported. Allergies No known drug allergies Medications Name Sig Start Date Stop Date Status Note LastModified by Organization Details LastModified Time Prescripti on - Prior Authorizat ion Request 01/06 completed Not Available Not Available Not Available cyclobenza debbie 10 mg tablet TAKE 1 TABLET BY MOUTH THREE TIMES DAILY NEEDED FOR MUSCLE TENSION 05/18 completed Not Available Not Available Not Available amoxicilli n 500 mg capsule 10/21 completed Not Available Not Available Not Available doxycyclin e hyclate 100 mg capsule Take 1 capsule twice a day by oral route for 30 days. 08/18 completed Not Available Not Available Not Available albuterol sulfate 2.5 mg/3 mL (0.083 %) solution for nebulizati on Inhale 3 mL by nebuliza tion route for 1 day. 04/04 completed Not Available Not Available Not Available ibuprofen 800 mg tablet Take 1 tablet 3 times a day by oral route. 09/20 completed Not Available Not Available Not Available tizanidine 4 mg tablet 08/18 completed does not take Not Available Not Available Not Available hydrocodon e 5 mg-acetami nophen 325 mg tablet TAKE 1 TABLET BY MOUTH EVERY 8 HOURS NEEDED FOR MODERATE TO SEVERE PAIN 10/21 completed Not taking Not Available Not Available Not Available fluconazol e 200 mg tablet 04/04 completed Not Available Not Available Not Available ondansetro n HCl 4 mg tablet TAKE 1 TABLET BY MOUTH EVERY 8 HOURS NEEDED FOR NAUSEA - 1ST LINE 10/21 completed Not Available Not Available Not Available prednisone 20 mg tablet 04/04 completed Not Available Not Available Not Available spironolac tone 100 mg tablet TAKE 1 TABLET BY MOUTH DAILY 10/21 completed Not taking Not Available Not Available Not Available Doc-Q-Lace 100 mg capsule 02/24 completed Not Available Not Available Not Available Zyrtec 10 mg tablet Take 1 tablet every day by oral route. 04/04 completed Not Available Not Available Not Available metronidaz ole 500 mg tablet 12/06 completed Not Available Not Available Not Available ciprofloxa geovanna 500 mg tablet 02/24 completed Not Available Not Available Not Available sulfametho xazole 800 mg-trimeth oprim 160 mg tablet 12/06 completed Not Available Not Available Not Available doxycyclin e monohydrat e 100 mg tablet 2014 active Not Available Not Available Not Avai lable tramadol 50 mg tablet TAKE 1 TABLET BY MOUTH EVERY 8 HOURS NEEDED PAIN. TAKE 500 TO 650 MG OF ACETAMIN OPHEN WITH EACH DOSE. TAKE WITH FOOD 04/08 completed Not Available Not Available Not Available oxycodone- acetaminop hen 5 mg-325 mg tablet 02/24 completed Not Available Not Available Not Available amoxicilli n 875 mg tablet active Not Available Not Available Not Available estradiol 1 mg tablet TAKE 1 TABLET BY MOUTH EVERY DAY 10/21 completed Not Available Not Available Not Available clindamyci n 1 % topical gel APPLY A THIN LAYER TO THE AFFECTED AREA(S) BY TOPICAL ROUTE 2 TIMES PER DAY 08/18 completed Not Available Not Available Not Available tamsulosin 0.4 mg capsule 04/25 completed Not Available Not Available Not Available dicyclomin e 20 mg tablet TAKE 1 TABLET BY MOUTH EVERY 6 HOURS NEEDED 10/21 completed Not Available Not Available Not Available Synthroid 25 mcg tablet 1 TABLET DAILY 01/06 completed Not Available Not Available Not Available amitriptyl ine 10 mg tablet Take 1 tablet every day by oral route at bedtime. 07/23 completed Not Available Not Available Not Available doxycyclin e monohydrat e 100 mg capsule TAKE 1 CAPSULE BY MOUTH TWICE DAILY 04/08 completed Not Available Not Available Not Available levothyrox ine 125 mcg tablet TAKE ONE TABLET BY MOUTH ONCE DAILY 07/23 completed Not Available Not Available Not Available Synthroid 75 mcg tablet Take 1 tablet every day by oral route. 03/03 completed Not Available Not Available Not Available ibuprofen 600 mg tablet active Not Available Not Available Not Available polyethyle ne glycol 3350 17 gram/dose oral powder DISSOLVE 17 GRAMS WITH 8 TO 16 OUNCES OF WATER OR FRUIT JUICE AND CONSUME DAILY TO HELP BOWELS MOVE DAILY. active Not Available Not Available No t Available methylpred nisolone 4 mg tablets in a dose pack FOLLOW PACKAGE DIRECTIO NS 04/08 completed Not Available Not Available Not Available Vitamin D2 1,250 mcg (50,000 unit) capsule Take 1 capsule every week by oral route for 28 days. 04/04 completed Not Available Not Available Not Available ondansetro n 4 mg disintegra ting tablet 12/06 completed Not Available Not Available Not Available metformin ER 500 mg tablet,ext ended release 24 hr TAKE 2 TABLETS BY MOUTH DAILY 10/21 completed Not taking Not Available Not Available Not Available clotrimazo le 1 % topical cream APPLY TO THE AFFECTED AND SURROUND ING AREAS OF SKIN (left leg) BY TOPICAL ROUTE 2 TIMES PER DAY IN THE MORNING AND EVENING for 6-8 weeks. 04/25 completed Not Available Not Available Not Available doxycyclin e hyclate 100 mg tablet TAKE 1 TABLET BY MOUTH 2 TIMES A DAY 10/21 completed Not Available Not Available Not Available naproxen 500 mg tablet TAKE 1 TABLET BY MOUTH EVERY 12 HOURS NEEDED 08/18 completed does not take Not Available Not Available Not Available amoxicilli n 875 mg-potassi um clavulanat e 125 mg tablet Take 1 tablet every 12 hours by oral route for 10 days. 04/04 completed Not Available Not Available Not Available Ventolin HFA 90 mcg/actuat ion aerosol inhaler Inhale 2 puffs every 4 hours by inhalati on route as needed. 04/04 completed Not Available Not Available Not Available clindamyci n phosphate 1 % topical solution 10/21 completed Not Available Not Available Not Available nitrofuran toin monohydrat e/macrocry stals 100 mg capsule TAKE 1 CAPSULE BY MOUTH EVERY 12 HOURS FOR 5 DAYS 04/08 completed Not Available Not Available Not Available pregabalin 75 mg capsule TAKE 1 CAPSULE BY MOUTH TWICE DAILY FOR 15 DAYS 08/18 completed does not take Not Available Not Available Not Available pregabalin 150 mg capsule TAKE 1 CAPSULE BY MOUTH TWICE DAILY AFTER 75 MG RX IS COMPLETE D active Not Available Not Available No t Available thyroid (pork) 60 mg tablet TAKE 1 TABLET BY MOUTH DAILY active Not Available Not Available No t Available thyroid (pork) 15 mg tablet TAKE 1 TABLET BY MOUTH DAILY 08/18 completed does not take Not Available Not Available Not Available thyroid (pork) 30 mg tablet TAKE 1 TABLET BY MOUTH DAILY 08/18 completed does not take Not Available Not Available Not Available Paxlovid 300 mg (150 mg x 2)-100 mg tablets in a dose pack TAKE 2 NIRMATRE LVIR TABLETS AND 1 RITONAVI R TABLET TOGETHER BY MOUTH TWICE DAILY FOR 5 DAYS DIRECTED 10/14 completed Not Available Not Available Not Available Vitals Date Recorded Body height Body mass index (BMI) Body weight Heart rate Oxygen saturation Oxygen saturation in Arterial blood by Pulse oximetry Respiratory rate Body temperature Systolic And Diastolic Provider Name and Address Organization Details Last Updated DateTime 5 175.26 cm 43.1 kg/m2 972373. 97 g 75 /min 98 % 98 % 20 /min 98.2 [degF] 116/80 mm[Hg] Dagmar Mccain Isra ID - SIF 5 09:16:16 Date Recorded Body height Body mass index (BMI) Body weight Oxygen saturation Oxygen saturation in Arterial blood by Pulse oximetry Heart rate Respiratory rate Body temperature Systolic And Diastolic Provider Name and Address Organization Details Last Updated DateTime 4 175.26 cm 41.5 kg/m2 730873. 46 g 95 % 95 % 102 /min 16 /min 97.5 [degF] 122/72 mm[Hg] Salma Manrique Isra ID - SI 4 08:54:49 Date Recorded Body height Body mass index (BMI) Body weight Oxygen saturation Oxygen saturation in Arterial blood by Pulse oximetry Respiratory rate Body temperature Heart rate Systolic And Diastolic Provider Name and Address Organization Details Last Updated DateTime 4 175.26 cm 41.6 kg/m2 991898. 05 g 97 % 97 % 16 /min 97.5 [degF] 72 /min 142/94 mm[Hg] Salma Manrique Isra ID - SI 4 12:34:01 Date Recorded Body height Body mass index (BMI) Body weight Oxygen saturation Oxygen saturation in Arterial blood by Pulse oximetry Heart rate Respiratory rate Body temperature Systolic And Diastolic Provider Name and Address Organization Details Last Updated DateTime 4 175.26 cm 42.4 kg/m2 982861. 09 g 98 % 98 % 82 /min 16 /min 97.7 [degF] 111/77 mm[Hg] Allie Avendaño MA [facility] 4 16:43:25 Date Recorded Body height Body mass index (BMI) Body weight Heart rate Body temperature Respiratory rate Oxygen saturation Oxygen saturation in Arterial blood by Pulse oximetry Systolic And Diastolic Provider Name and Address Organization Details Last Updated DateTime 4 175.26 cm 42.2 kg/m2 931281. 7 g 84 /min 98.1 [degF] 18 /min 96 % 96 % 138/84 mm[Hg] NED Travis [facility] 4 14:09:20 Social History Question Answer Notes LastModified by Organizat ion Details LastModified Time Tobacco Smoking Status Current Every Day Smoker [place] [facility], [facility] 08/27/2014 10:03:22 Do You Have An Advance Directive? No Information not available 08/18/2024 Are You Blind Or Do You Have Difficulty Seeing? No [email or web address] Information not available 04/04/2022 What Is Your Level Of Caffeine Consumption? Heavy Tea, Coffee Information not available 04/08/2024 How Much Tobacco Do You Chew? None Information not available 07/23/2018 In The 14 Days Before Symptom Onset, Have You Had Close Contact With A Laboratory-confir med COVID-19 While That Case Was Ill? No [email or web address] Information not available 04/04/2022 In The 14 Days Before Symptom Onset, Have You Had Close Contact With A Person Who Is Under Investigation For COVID-19 While That Person Was Ill? No [email or web address] Information not available 04/04/2022 Have You Been To An Area Known To Be High Risk For COVID-19? No [email or web address] Information not available 04/04/2022 Are You Deaf Or Do You Have Serious Difficulty Hearing? No [email or web address] Information not available 04/04/2022 What Type Of Diet Are You Following? REGULAR Information not available 08/27/2014 Education 10 Information no t available 07/23/2018 Are There Any Guns Present In Your Home? No [email or web address] Information not available 04/04/2022 Marital Status Single alvarez Informatio n not available 07/23/2018 What Was The Date Of Your Most Recent Tobacco Screening? 08/18/2024 Information not available 08/18/2024 How Many Children Do You Have? 2 [email or web address] Information not available 04/04/2022 What Is Your Relationship Status? Single [email or web address] Information not available 04/04/2022 Do You Use Your Seat Belt Or Car Seat Routinely? Yes [email or web address] Information not available 04/04/2022 Are You Sexually Active? Yes Information not available 08/18/2024 Do You Have Smoke And Carbon Monoxide Detectors In Your Home? Yes [email or web address] Information not available 04/04/2022 At What Age Did You Start Smoking Tobacco? 14 [email or web address] Information not available 04/04/2022 Are You Passively Exposed To Smoke? Yes [email or web address] Information no t available 04/04/2022 How Much Tobacco Do You Smoke? 0.5 PPD Or Less Information not available 05/18/2024 General Stress Level Low [email or web address] Information not available 08/27/2014 Do You Use Sunscreen Routinely? Yes [email or web address] Information not available 04/04/2022 Has Tobacco Cessation Counseling Been Provided? Yes [email or web address] Information not available 04/04/2022 On What Date Was Tobacco Cessation Counseling Provided? 08/18/2024 Information not available 08/18/2024 How Many Years Have You Smoked Tobacco? 20 Information not available 05/18/2024 Sex: Female Functional Status Question Answer Note LastModified by Organization Details LastModified Time Do you use any illicit or recreational drugs? Yes davon [email or web address] Information not available 04/04/2022 Do you or have you ever used any other forms of tobacco or nicotine? No [email or web address] Information not available 04/04/2022 What is your level of alcohol consumption? None [email or web address] Information not available 04/04/2022 Are you currently employed? Yes [email or web address] Information not available 04/04/2022 Are you able to care for yourself? Yes [email or web address] Information not available 04/04/2022 What is your occupation? [employer] Information not available 07/23/2018 What is your exercise level? None Information not available 01/07/2024 What type of noise exposure are you exposed to? [email or web address] [email or web address] Information not available 10/15/2023 Mental Status Question Answer Note LastModified by Organization D etails LastModified Time Do you feel stressed (tense, restless, nervous, or anxious, or unable to sleep at night)? [id number] Information not available 10/22/2023 Family History Relationship Description Onset Age of this Age Resolved Age Notes LastModified by Organization Details LastModified Time Mother Harmful pattern of use of alcohol Not available 2014 10:03:22 Mother Asthma [email or web address] Not available 08/27/2014 10:03:22 Mother History of depression [email or web address] Not available 08/27 10:03:22 Mother Myocardial infarction [email or web address] Not available 03/09 10:28:34 Father Asthma [email or web address] Not available 08/27/2014 10:03:22 Father History of depression Not available 08/27 10:03:22 Father Essential hypertension [email or web address] Not available 10:03:22 Father Kidney disease [email or web address] Not available 2014 10:03:22 Father Carcinoma in situ of colon [email or web address] Not available 2014 10:03:22 Sister History of depression [email or web address] Not available 08/27 10:03:22 Sister Kidney disease [email or web address] Not available 2014 10:03:22 Notes:08/18/24 Medical History Condition Response Coronary Artery Disease N Other N High Blood Pressure N Atrial Fibrillation N Kidney or Bladder Problems N Thyroid Problems Y GI Problems N Depression N COPD N Blood Clots N Skin Problems Y Anemia N Heart Attack (ME) N Anxiety Disorder N Diabetes N Muscle, Joint, or Bone Problems N Seizures/Epilepsy N Acid Reflux (GERD) N Cancer N Stroke N Asthma N Allergies N High Cholesterol N Hepatitis N Liver Disease N Headaches Y Heart Failure N Osteoporosis N Gynecological History Statement/Question Response Date of Last Mammogram Flow Heavy Date of LMP 05/19/2022 Menses Monthly N Date of Last Pap Smear 07/08/2022 Duration of Flow (days) 5 Current Control Method Tubal Ligat ion LMP Approximate Obstetrics History GPAL:G 3 P 2 0 1 2 Type Value Full Term 2 Spontaneous 1 Living 2 Total 3 Past Encounters Encounter ID Performer Location Encounter Start Date Encounter Closed Date Diagnosis/Indication Diagnosis SNOMED-CT Code Diagnosis ICD10 Code Diagnosis Note [id number] [facility] [address] [place] [address] 08/27/2014 09:15:56 08/27/2014 12:04:33 Hypothyroidism [id number] Labs today quest. will dose based on testing results. Obese [id number] [facility] [address] [place] [address] 10/11/2014 16:40:03 10/14/2014 16:22:59 Hydronephrosis [id number] Patient had stent in ureter at [place], abscess on ovary and was causing pressure on bowels. Patient doing much better. States some trace of blood in urine occasional ly, but also on menstrual cycle. If blood persists, patient to call RESPIRATORY THERAPY TECHNICIAN. Releasing patient to return to work on Saturday, October 13, 2013. [id number] YARED [facility] (Adult Med) [address] [place] [address] 02/24/2015 15:17:53 02/24/2015 16:03:43 Hypothyroidism 96329353 Refilling levothyrox ine 125 mcg. labs due- patient will wait to get all fasting labs together. Otitis media 33207827 Co ntinue full script [facility]. [id number] [facility] [address] [place] [address] 04/12/2015 10:02:00 04/12/2015 11:12:00 Spasm of back muscles 421807134 M62.830 Lumbar spine. Flexeril 10 mg tid prn. Tramadol 50 mg TID prn #30. Heat compress, stretching , rest. [id number] MD Santana Holcomb (Adult Med) [address] [place] [address] 10/04/2015 14:24:39 10/04/2015 17:56:25 Tinea corporis 40741932 B35.4 Wash and dry daily. Launder wash cloth in hot soapy water. Clotrimazo le 1% topical cream to lesion and surroundin g areas bid for 6-8 weeks. May stop clotrimazo le 3-5 days after lesion gone. Hypothyroidism 83111148 E03.9 Refilling levothyrox ine 125 mcg. Labs today. Hyperlipidemia 61784095 E78.2 Diabetes m ellitus screening 169024666 Z13.1 Obese 729147118 E66.9 Adult heal th examination 305153821 Z00.01 Encouraged well balanced meals, active lifestyle, and routine vision/den bret/patient attendant apts. [id number] HALEY Pollard (Adult Med) [address] [place] [address] 04/25/2016 15:32:24 04/26/2016 10:50:15 Hypothyroidism 08021996 E03.9 Hyperlipidemia 39701394 E78.5 Liver enzy mes outside reference range 452337760 R94.5 Migraine 79535201 G43.90 9 Chronic back pain 193878 002 M54.16 given handout for exercises/ stretches. Body mass index 40+ - severely obese 449916344 Z68.41 follow heart healthy diet and exercise 20min 3 days a week [id number] HALEY Pollard (Adult Med) [address] [place] [address] 09/03/2016 15:51:16 09/04/2016 08:51:02 Fall 0267028 W19.XXXA slip w/o fall in shower Backache 684067516 M54.9 tightness to thoracolum bar spine, discussed w/ patient that she likely has chronic muscle tightness with poor posture. Constipation 01964834 K5 9.00 improved w/ mag citrate. recommend stool softener daily & increasing fiber & water intake. Hypothyroidism 90187666 E03.9 patient counseled on taking levothyrox ine every day, same time. Since she has not been taking it for 2 weeks, recommend repeat labs in one month after she has been taking it daily. Myalgia/my ositis - multiple 611500005 M79.1 patient's mother wanted her to ask about fibromyalg ia. dwp that this is a daignosis when all else cannot be ruled out. Pt needs to take her thyroid medication more consistent ly. Recommend PT and increasing activity, weight loss. Morbid obesity 068411149 E66.01 BMI 42.8, weight is down 12 lbs from Oct visit. [id number] HALEY Pollard (Adult Med) [address] [place] [address] 09/20/2016 15:52:06 09/21/2016 12:09:48 Hypothyroidism 24642568 E03.9 cont current dose of medication , TSH stable 09/13 Has a sore throat 203864 002 J02.9 negative for strep. start allergy med. drink plenty of fluids Posterior rhinorrhea 758 67637 R09.82 no antibiotic s at this time. Vitamin D deficiency 347 60000 E55.9 reviewed labs w/ patient, discussed getting levels up to 40 using Rx med Backache 983747708 M54.9 ibuprofen & tizanidine didn't help, no longer taking. Recommend physical therapy, given contact informatio n today. Fatigue 07193901 R53.83 Admits to restless sleep, wakes up feeling tired, falls asleep easily even while talking w/ boyfriend at home. never evaluated for PREETHI in past. Constipation 78043909 K5 9.00 Improved, not taking anything anymore, just trying to drink more water, less tea. Morbid obesity 396854884 E66.01 BMI 43.7, weight is up 6 lbs from last visit. [id number] MD Santana Wylie (Adult Med) [address] [place] [address] 07/23/2018 10:03:48 07/23/2018 13:49:54 Acute bronchitis with bronchospasm 46246328 J20.9 Advised her to quit smoking, throw out old inhaler and start using new inhaler at least 2 puffs BID and PRN Q4hrs w/ coughing spasms, if she feels sxs not improving by next week, call office. May need longer steroid tx. Tobacco user 762632662 Z 72.0 Strongly advised to quit, making cough & wheezing worse. Acute otitis media 11351 03 H65.03 Hypothyroidism 23574366 E03.9 off medication s for some time, last visit here was 09/2016; was controlled on levothyrox ine 125mcg. Vitamin D deficiency 347 40003 E55.9 reviewed labs w/ patient, discussed getting levels up to 40 using Rx med Hyperlipidemia 35504514 E78.5 last LDL 2015 was 114, HDL 35. Not following any particular diet Body mass index 40+ - severely obese 089783598 Z68.41 6lb weight gain since 08/2016, not exercising regularly or eating low fat diet. Advised pt to start taking better care of herself. We will discuss weight loss once she completes labs and resumes medication s. [id number] MD Santana Douglas (Adult Med) [address] [place] [address] 04/04/2022 10:14:14 04/05/2022 08:11:23 Adult health examination 893126667 Z00.01 Encouraged routine RESPIRATORY THERAPY TECHNICIAN, vision, dental exams, well balanced diet. Tobacco user 010052946 Z 72.0 Smoking cessation encouraged . Morbid obesity 814507571 E66.01 advised low fat, low cholestero l diet, regular exercise and weight reduction. Vitamin D deficiency 347 70207 E55.9 check lab Hypothyroidism 31124070 E03.9 used to be on replacemen t, has not for several years Abdominal pain 11965575 R10.9 ongoing pain also r/t ovarian issues, colonoscop y in 2014, will get labs and refer ot GI [id number] MD Santana Douglas (Adult Med) [address] [place] [address] 06/06/2022 14:39:26 06/07/2022 08:19:12 Hypothyroidism 80515217 E03.9 used to be on replacemen t, has not for several yearstsh too high will start euthrox 25 mcg- pt had symptoms- nausea on this, requested to see endocrine Hyperlipidemia 01897879 E78.5 diet changes Hidradenit is suppurativa 77611065 L73.2 pt on abx from gyne,p treatment plan Obesity 209283285 E66.9 advised low fat, low cholestero l diet, regular exercise and weight reduction. [id number] MD Santana Douglas (Adult Med) [address] [place] [address] 12/06/2022 09:48:49 12/10/2022 10:21:32 Liquid stool 260456222 R19.5 will order stool testing, plan pending White bloo d cell count outside reference range 934828324 R79.89 repeat lab Bacteriuria 33961408 R82 .71 some in ER, symptoms worsening, will get culture and treat with macrobid Obesity 736642370 E66.9 advised low fat, low cholestero l diet, regular exercise and weight reduction. Depression screening 171 571269 Z13.31 [id number] MD Santana Chavez (Adult Med) [address] [place] [address] 10/15/2023 15:34:08 10/24/2023 20:38:29 Blood in ear canal 257468807 H92.20 blood on canal wall ear drum clear middle ear clear follow back if it recurs [id number] MD Santana Douglas (Adult Med) [address] [place] [address] 10/22/2023 08:46:12 10/25/2023 10:44:39 Strain of neck muscle 004509997 S16.1XXA - muscle relaxer and nsaid-stre tching Obesity 425106685 E66.9 advised low fat, low cholestero l diet, regular exercise and weight reduction. Adult [facility] th examination 386425925 Z00.00 Encouraged routine RESPIRATORY THERAPY TECHNICIAN, vision, dental exams, well balanced diet. Hyperglycemia 78418684 R 73.9 check lab, has made diet changes Smoker 92605928 F17.200 Continue to cut back on smoking. [id number] MD Santana Douglas (Adult Med) [address] [place] [address] 01/07/2024 11:43:48 01/13/2024 16:35:54 Dysuria 31220243 R30.0 urine dip pos leuk, will send for culture and notify pt if abx change needed, will start macrobid; dwp to increase fluids and RTO if increase in pain or fever or other changes occur. Pain of le ft elbow joint 4046410850 2187811 M25.522 will trial medrol dose pack to see if inflammati on improves;s till advised RICE Hidradenit is suppurativa 84140208 L73.2 pt on abx from [facility] treatment plan [id number] MD Santana Douglas (Adult Med) [address] [place] [address] 04/08/2024 16:32:32 04/29/2024 10:27:21 Pain in left foot 0868978263 07819 M79.672 pain to lateral aspect of left foot, can feel a bone movingwil l start with xrhas seen podiatry in past Migraine 01821946 G43.90 9 no prior imaging, pt requesting to have her head checked with increased pains widespread ; Obesity 972534293 E66.9 advised low fat, low cholestero l diet, regular exercise and weight reduction. Paresthesia 80164177 R20 .2 pt c/o squeezing type of sensation to whole body, not really pain, improved, comes and goes,dwp stabilizin g thyroid is priority,n o TIA or CVA or other symptoms, just states it feels like she is being hugged hard [id number] MD Reji Harley [address] [facility] [address] [place] [address] 05/18/2024 13:51:09 05/28/2024 13:35:43 Morbid obesity 551220609 E66.01 -Discussed resources like nutritioni st or dietitian. -Reduce drinks with high sugar like soda or juice, increase water intake.-In crease fresh fruits and vegetables to diet.-Eat only when you are hungry.-Re duce portions and limit snacks.-Re commend continued lifestyle modificati ons & exercise. Smoker 21806008 F17.200 -Smoking 0.5 pack a day, started at age 18. 10 Pack year.-Star t smoking cessation plan:-Week one: count how many cigarettes a day are you smoking. Light cigarettes with matches.- Week two: The average number in a plastic back, you are only allowed to have what you set aside.-Bravo k three: take out two cigarettes /daily.-We ek four: continue taking out two cigarettes a week, until 4 are remaining. -Switch habit to sucker, gum, etc.-Will f/u at next visit.--Al so, smokes weed. Chronic back pain 000735 002 G89.29 -Pt reports pain for ten years; affecting ADLs.-Has taken Naproxen and muscle relaxers for symptom relief. Also, does stretching exercise.- Will refer to pain management for further evaluation . Hidradenit is suppurativa [id number] L73.2 -Recurrent lesions to axillary and inguinal area.-Has taken oral doxycyclin e for symptom, causing GI symptoms.- Topical clindamyci n for active lesion.-Co nsider General Surgery referral if symptoms progress. Hypothyroidism [id number] E03.9 -Well controlled with [place] thyroid 30mg daily; increased from 15 mg in April 2024.-Love ent allergic/u nresponsiv e to Synthroid or derivative s. [id number] MD Reji Lowry 14 IM [address] [facility] [address] [place] [address] 08/18/2024 08:57:37 09/01/2024 13:48:11 Morbid obesity 980927510 E66.01 -Reduce drinks with high sugar like soda or juice, increase water intake.-In crease fresh fruits and vegetables to diet.-Eat only when you are hungry.-Re duce portions and limit snacks.-Re commend continued lifestyle modificati ons & exercise. Smoker [id number] F17.200 -Smoking 0.5 pack a day, started at age 18. 10 Pack year.-Star t smoking cessation plan:-Week one: count how many cigarettes a day are you smoking. Light cigarettes with matches.- Week two: The average number in a plastic back, you are only allowed to have what you set aside.-Bravo k three: take out two cigarettes /daily.-We ek four: continue taking out two cigarettes a week, until 4 are remaining. -Switch habit to sucker, gum, etc.-Will f/u at next visit.--Al so, smokes weed daily. SARS-CoV-2 vaccination declined [id number] Z28.21 Tetanus di phtheria and acellular pertussis vaccination declined [id number] Z28.20 Hidradenit is suppurativa of multiple sites [id number] L73.2 -Recurrent lesions to axillary, breast and inguinal area.-Curr ently, no active lesions, no drainage.- Has taken oral doxycyclin e for symptom relief, causing GI symptoms. Will discontinu e.-Will send referral to dermatolog y. Health Concerns Section Related Observation LastModified by Organization Detai ls LastModified Time None Recorded Concern Status LastModified by Organization Details LastModified Time None Recorded Advance Directives Directive N: Payers Insurance Date Sequence Insurance Name Policy Number Policy Sorenson Covered Member ID Sorenson Member ID Guarantor Name 09/01/2024 1 DORA Hickies [facility] - DOS ON OR AFTER 21 (MEDICAID REPLACEMENT - HMO) Brookeisra Davis [id number] Celeste Susan 10/15/2023 1 [facility] (MEDICAID HMO) [facility] Celeste Susan [id number] Brooke Susan 10/15/2023 1 [facility] (MEDICAID HMO) [id number] Brooke Susan [id number] Brooke Susan 10/15/2023 1 [place] [employer] Brooke Susan [id number] Celeste Susan Notes Date Note Type Note Provider Name and Address Organization Details Recorded Time 4 text/html neck pain since saturday- hurts to turn head and sit up straight. Thinks she slept wrong. pt has been taking her tramadol she was rx her for ears. also fasting so she can get labs done tried elimination diet to figure out what she can eat, she cannot tolerate pork Carrie Bejarano APN, MOHS SURGEON/GENERAL DERMATOLOGIST-C Attn: [address] [place], [address], [place] - [place] 10/22/2023 09:19:00 4 text/html tried to shut car door with left elbow. went to ER 11/18 and was told a ligament was bruised. states the was over a month ago and she still cannot bend all the way Went appt was made- she was having arthritis flare up in her upper back. States now its more in her lower back and would like a medication for arthritis. tried naproxen, ice and heat States she would like urine dip to rule out UTI. Denies UTI sx but always starts out with back pain. lower back pain started 4-5 days ago Carrie Bejarano APN, LEONOR Attn: [address] [facility], [place], [address], [facility] - [place] 01/13/2024 15:29:08 4 text/html Pt is wanting to discuss pain she is having in her whole body. She states it feels like a super tight hug and has tightness everywhere to all body parts, not just on area. squeezing pain to pinching, wakes up and the pain is there, does not start in one specific area, the only way she does not hurt is if she uses edibles with cbd and thc;wants to have a full body scan;pt cannot articulate where the pain is, to say if muscle, joint or nerve;lower back issues at timeshx of migraines; family hx of cerebral palsy but nothing else that she is aware of, pain to left foot, can feel a bone moving; has not gone back to podiatry Carrie Bejarano APN, LEONOR Attn: [address] [facility], [place], [address], [facility] - [place] 04/27/2024 18:13:27 4 text/html Celeste Davis is a 38 year old female with a PMH of hypothyroidism and chronic pain. She is new to my care and presents to the office to establish care. Reports the following concerns:1. Pain all over bodyDescribed as a tight, ache and squashing feeling from head to tip of toes since 2009 after miscarriage.Reports losing a lot of during miscarriage, can't recall if a blood transfusion was performed.After miscarriage had a healthy 12 years ago. No diagnosis of anemia.Reports pins and needles type of pain when scratches her head.Hit her left elbow when closing car door, received OT for 8mo, but still reports pain.Has taken Naproxen and muscle relaxers for symptom relief. Also, does stretching exercise.Reports smoking weed helps with the pain.Patient believes she may have fibromyalgia.Has received Toradol injections, but no steroid injections.Pain is worse on her back and hip.History of lordoscoliosis.Pain limits ADL's. 2. 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 Smokes 0.5 pack of tobacco x 20 years. and Smokes weed daily.Denies anxiety or depression symptoms. Has good support if needed. Gonzalo Purcell MD Attn: [address] [place], [address], [place] [facility] 05/19/2024 14:06:52 5 text/html Celeste Davis is a 38 year old female with a PMH of hypothyroidism and chronic pain. She is new to my care and presents to the office to establish care. Reports the following concerns:1. Pain all over bodyWell controlled with pregabalin, started by pain management.Reports grinding sound and lower back pain. 2. 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 Smokes 0.5 pack of tobacco x 20 years. and Smokes weed daily.Denies anxiety or depression symptoms. Has good support if needed. Shraddha Vallejo MD Attn: [address] [facility], [place], [address], [facility] 08/31/2024 18:54:26 OBGyn Episode No OBEpisode recorded.
--- OUTSIDE RECORDS SUMMARY | 2025-01-13 12:27 | XMS_ITS | Clinical Summary ---
Author Organization [facility] Address [address] [place] [address] Phone Care Team Providers Care Behavior Management Specialist Name Role Phone Darlyn Interiano APRN, OMAR Unavailable Bairon Fernandez MD Unavailable Peggy Aguero MD Primary Care Provider [phone] Allergies No known active allergies Medications doxycycline hyclate (VIBRA-TABS) 100 MG TabletIndicatio ns:Hydronephros is Indications: Hydronephrosis 04/23/20 22 Active naproxen (NAPROSYN) 500 MG Tablet 2 times daily as needed. 04/06/20 22 Active spironolactone (ALDACTONE) 100 MG Tablet Take 100 mg by mouth daily. Active metFORMIN (GLUCOPHAGE) 500 MG Tablet Take 500 mg by mouth 2 times daily (with meals). Active ESTROGENS CONJUGATED PO Take 1 mg by mouth daily. Active HYDROcodone-nain taminophen (NORCO) 5-325 MG TabletIndicatio ns:LLQ abdominal pain Take 1 Tablet by mouth every 8 hours as needed for Moderate or more severe pain. 20 Tablet 11/27/19 23 Active clindamycin (CLEOCIN T) 1 % Solution 03/28/20 22 Active ondansetron (ZOFRAN-ODT) 4 MG TABLET DISPERSIBLE Take 1 Tablet by mouth every 8 hours as needed for Nausea - 1st line. 30 Tablet 12/05/19 23 Active dicyclomine (BENTYL) 20 MG TabletIndicatio ns:Left upper quadrant abdominal pain TAKE 1 TABLET BY MOUTH EVERY 6 HOURS NEEDED 90 Tablet 08/06/19 24 Active thyroid (ARMOUR) 60 MG Tablet TAKE 1 TABLET BY MOUTH DAILY 90 Tablet 1 11/17/19 25 Active Active Problems Problem Noted Date Diagnosed Date PCOS (polycystic ovarian syndrome) 06/18/2022 Overview (07/18/2022): Last Assessment & Plan: Importance of diet and exercise was discussed Will check hemoglobin A1c Will start metformin which patient said help her in the past, before with some weight loss Subclinical hypothyroidism 06/18/2022 Overview (07/18/2022): Last Assessment & Plan: With very mild, nonspecific symptoms Unable to tolerate LT4 With a TSH of 8.0 I would not see the need for L T4 replacement. The patient has agreed on staying off of medication and will monitor TSH level Hyperlipidemia 03/01/2022 Morbid obesity with BMI of 40.0-44.9, adult 12/07 PREETHI (obstructive sleep apnea) 12/27/2016 Encounters Date Type Department Care Team Description 11/16/2024 Refill [facility] [address] [place] [address] Bairon Fernandez MD Medication Refill 10/14/2024 Results Follow-Up [facility] [address] [place] [address] Bairon Fernandez MD THYROID STIMULATING HORMONE (TSH), THYROXINE (T4) FREE, TRIIODOTHYRININE (T3) TOTAL from Last 3 Months Family History Medical History Relation Name Comments Cancer Father Colon Cancer Father Alcohol Abuse Mother Asthma Mother Depression Mother Heart Attack Mother Hypertension Mother Kidney Disease Mother Depression Sister Kidney Disease Sister Relation Name Status Comments Father Mother Sister Social History Tobacco Use Types Packs/Day Years Used Date Smoking Tobacco: Every Day Cigarettes 1.5 24.5 Started: 2000 Smokeless Tobacco: Never Tobacco Cessation:Ready to Q uit: Not Asked; Counseling Given: Not Answered Alcohol Use Standard Drinks/Week Comments Yes 0 (1 standard drink = 0.6 oz pur e alcohol) OCCASIONALLY Sexually Active Control Partners Comments Not Currently Comments No Sex and Gender Information Value Date Recorded Sex Assigned at Not on file Legal Sex Female 9:06 PM CDT Gender Identity Not on file Sexual Orientation Not on file Last Filed Vital Signs Vital Sign Reading Time Taken Comments Blood Pressure 117/64 07/23/2024 7:51 AM ADZING AND BORING MACHINE HELPER Pulse 97 07/23/2024 7:51 AM ADZING AND BORING MACHINE HELPER Temperature 36.3 C (97.3 F) 07/23/2024 7:51 AM ADZING AND BORING MACHINE HELPER Respiratory Rate 22 07/23/2024 7:51 AM ADZING AND BORING MACHINE HELPER Oxygen Saturation 98% 07/23/2024 7:51 AM ADZING AND BORING MACHINE HELPER Inhaled Oxygen Concentration - - Weight 130.2 kg (287 lb) 07/23/2024 7:51 AM ADZING AND BORING MACHINE HELPER Height 172.7 cm (5' 8) 01/23/2024 10:19 AM CDT Body Mass Index 43.64 01/23/2024 10:19 AM CDT Plan of Treatment Health Maintenance Due Date Last Done Comments Hepatitis C Virus (HCV) Screening 1987 TdaP Immunization 1987 Human Papillomavirus (HPV) Immunization (1 - 3-dose series) 12/14/2002 Hepatitis B Immunization (1 of 3 - 19+ 3-dose series) 12/14/2006 Pneumococcal Immunization Co mbined (1 of 2 - PCV) 12/14/2006 SARS-COV-2 Immunization ( - season) 2024 Influenza Immunization (#1) 2025 Colonoscopy 12/14/2032 10/02/2022 Colorectal Cancer Screening 12/14/2032 Respiratory Syncytial Virus (RSV) Immunization (Adult) (1 - 1-dose 75+ series) 12/14/2062 Meningococcal Immunization (ACWY) Aged Out No longer eligible based on patient's age to complete this topic Rotavirus Immunization Aged Out No lo nger eligible based on patient's age to complete this topic Insurance MEDICAID [employer] Care Teams Behavior Management Specialist Relationship Specialty Start Date End Date Peggy Aguero MD [address] [place] [address] [address] [place] [address] PCP - General Family Medicine 06/06/24 Darlyn Interiano APRN, MICROBIOLOGY DIRECTOR [address] [place] [address] Nurse Practitioner Advanced Practice Nurse 07/18/22 Bairon Fernandez MD [address] [facility] [address] [place] [address] Consulting Physician Endocrinology 01/14/24
--- OUTSIDE RECORDS SUMMARY | 2025-01-13 12:27 | XMS_ITS | Encounter Summary ---
Author Organization [facility] Address [address] [place] [address] Phone Care Team Providers Care Gang Bore Operator Name Role Phone Darci Carrie MUÑOZ, OMAR Primary Care Provider [phone] Darlyn Interiano APRN, CNP Unavailable Bairon Fernandez MD Unavailable Peggy Aguero MD Primary Care Provider [phone] Reason for Visit * Reason Comments Medication Refill Encounter Details Date Type Department Care Team (Late st Contact Info) Description 08/06/2023 Refill [facility] [address] [place] [id number] Darlyn Interiano APRN, ACCOUNTS PAYABLE OR RECEIVABLE CLERK [address] [place], [place] [id number] Medication Refill Social History Tobacco Use Types Packs/Day Years Used Date Smoking Tobacco: Every Day Cigarettes 1.5 24.5 Started: 2000 Smokeless Tobacco: Never Alcohol Use Standard Drinks/Week Comments Yes 0 (1 standard drink = 0.6 oz pur e alcohol) OCCASIONALLY Sexually Active Control Partners Comments Not Currently Comments No Sex and Gender Information Value Date Recorded Sex Assigned at Not on file Legal Sex Female 9:06 PM CDT Gender Identity Not on file Sexual Orientation Not on file documented as of this encounter Miscellaneous Notes * Telephone Encounter - Lisette Mcgovern RN - 08/06/2023 12:04 PM DIABETES TERRITORY MANAGER Medication refilled and signed per [facility] chronic medication standing order for pediatric and adult patients. ETES TERRITORY MANAGER documented in this encounter Plan of Treatment Not on file documented as of this encounter Visit Diagnoses Diagnosis Left upper quadrant abdominal pain documented in this encounter Care Teams Gang Bore Operator Relationship Specialty Start Date End Date Carrie Bejarano APRN, OMAR [address] [facility] [address] [place] [address] PCP - General Family Medicine 04/05/22 06/05/24 Peggy Aguero MD 4 [facility] [address] [address] PCP - General Family Medicine 06/06/24 Darlyn Interiano APRN, ACCOUNTS PAYABLE OR RECEIVABLE CLERK [address] [place] [address] Nurse Practitioner Advanced Practice Nurse 07/18/22 Bairon Fernandez MD [address] [address] Consulting Physician Endocrinology 01/14/24 documented as of this encounter
[2025-01-13 12:29] VITALS: BP 125/63; PULSE 80; RESP 16; TEMP 36.4; O2SAT 97
--- NOTE | 2025-01-13 13:03 | ED_ITS ---
HPI - Ear Problem General Chief complaint: Ear Stated complaint: Earache Time Seen by Provider: 01/13/25 13:00 Source: patient and RN notes reviewed Mode of arrival: ambulatory Limitations: no limitations History of Present Illness HPI Narrative: 39-year-old female presents with concern for bilateral ear pain for 4 days. Reports she just return from [place] and was swimming a lot and she flew on an airplane home. She reports cough but denies any upper respiratory infection symptoms such as runny nose, stuffy nose. She has not taken any ggqk-zzc-uynhzwh medications for her symptoms. She denies drainage from the ear or hearing changes. MD Complaint: ear pain Related Data Home Medications ?Medication ?Instructions ?Recorded ?Confirmed ?Last Taken ?Type pregabalin 150 mg capsule mg 01/13/25 Unknown History thyroid (pork) 60 mg tablet mg 01/13/25 Unknown History Allergies Allergy/AdvReac Type Severity Reaction Status Date / Time No Known Allergies Allergy Unknown Verified 01/13/25 12:35 Review of Systems Review of Systems: CONSTITUTIONAL: Denies malaise, chills, sweats, or fever. EYES: Denies visual changes, redness, or discharge. ENT: Denies rhinorrhea, congestion, sinus pain, and sore throat. Reports bilateral ear pain CARDIOVASCULAR: Denies chest pain, palpitations, or edema. RESPIRATORY: Reports cough. Denies dyspnea. GASTROINTESTINAL: Denies abdominal pain, nausea, vomiting, diarrhea SKIN: Denies rash or itching. MUSCULOSKELETAL: Denies myalgia. NEUROLOGIC: Denies headache. All systems reviewed & are unremarkable except as noted in HPI and below PMFSH Past Medical History Medical History Obesity Smoker Surgical History Surgical History History of tubal ligation Social History Social History Smoking packs per day: 1 Smoking cigarettes per day: 20.0 Years smoked: 20 Smoking pack-years: 20.00 Smoking status: Current every day smoker Alcohol intake: current Alcohol use details: 4 PER YEAR Substance use: current Substance use type: marijuana Other substance usage details: DAILY Living arrangements: with family Comments At time of signature, agree with nursing past medical, surgical, social and family history. There is no relevant family history pertinent to the presenting complaint Exam Narrative: GENERAL: Well-appearing, well-nourished, and in no acute distress. HEAD: Normocephalic EYES: PERRLA, conjunctivae clear ENT: Nares clear. Mucous membranes moist. TM pearly bhat with dull light reflex on the left, sharp on the right; bilateral EACs slightly erythematous no tragal tenderness. Oropharynx not erythematous without lesions. Tonsils not enlarged and without exudate, no drooling, no hoarseness, no trismus, uvula midline. NECK: Supple. No lymphadenopathy CHEST: Clear to auscultation, breath sounds equal. No wheezing, rhonchi, rales, or stridor. No respiratory distress, speaks in full sentences. HEART: Regular rate and rhythm. No murmur heard. SKIN: Warm, dry, no rash. NEURO: Alert and oriented x3. PSYCH: Normal mood and affect Course Course Emergency Course: Patient is aware of diagnosis, understands and agrees to treatment plan. Anticipatory guidance given. Patient agrees to follow-up as directed and is aware of reasons to seek care at the emergency department. Portions of this record may have been created with voice recognition software Level of Care: Express Care Visit Vital Signs Vital signs: Vital Signs Temperature 97.5 F L 01/13/25 12:29 Pulse Rate 80 01/13/25 12:29 Respiratory Rate 16 01/13/25 12:29 Blood Pressure 125/63 01/13/25 12:29 Pulse Oximetry 97 01/13/25 12:29 Oxygen Delivery Room Air 01/13/25 12:29 Temperature 97.5 F L 01/13/25 12:29 Pulse Rate 80 01/13/25 12:29 Respiratory Rate 16 01/13/25 12:29 Blood Pressure 125/63 01/13/25 12:29 Pulse Oximetry 97 01/13/25 12:29 Oxygen Delivery Room Air 01/13/25 12:29 Reviewed. Medical Decision Making MDM Narrative Medical decision making narrative: I evaluated this in the [facility] care. History is obtained from patient who is an independent historian and physical exam was performed.? Available medical records were reviewed. ? Exam findings and relevant testing show no acute concerns or changes; patient is non-toxic appearing and is in no distress. Differential diagnosis considered: Hernandez virus, strep pharyngitis, allergic rhinitis, upper respiratory tract infection, sinusitis, rhinosinusitis, nasopharyngitis. viral pharyngitis, otitis media, otitis externa, otitis effusion, cerumen impaction, foreign body. Exam findings show no acute concerns or changes; patient is non-toxic appearing and is in no distress. Patient is appropriate for outpatient treatment and follow-up. ? Differential diagnosis and treatment plan were discussed with the patient. Patient agrees with discussion and after shared medical decision making agrees with plan of care. All questions were answered to the patient's satisfaction. Patient is appropriate for outpatient treatment and follow-up. Vital Signs Vital Signs: Vital Signs Temperature 97.5 F L 01/13/25 12:29 Pulse Rate 80 01/13/25 12:29 Respiratory Rate 16 01/13/25 12:29 Blood Pressure 125/63 01/13/25 12:29 Pulse Oximetry 97 01/13/25 12:29 Oxygen Delivery Room Air 01/13/25 12:29 Temperature 97.5 F L 01/13/25 12:29 Pulse Rate 80 01/13/25 12:29 Respiratory Rate 16 01/13/25 12:29 Blood Pressure 125/63 01/13/25 12:29 Pulse Oximetry 97 01/13/25 12:29 Oxygen Delivery Room Air 01/13/25 12:29 Critical Care Time Critical Care Time Critical Care Time: No Discharge Plan Discharge Clinical Impression: Otitis externa Patient Disposition: Home Condition: Stable Instructions: How to Use Ear Drops (ED) Additional Instructions: 1) Please follow-up with your primary care doctor in the next 1-2 days. 2) If you have any worsening of symptoms or any other urgent concerns please go to the ER. 3) Please take medications as prescribed and continue taking your home medications as usual. Your symptoms continue after starting ear drops he may consider Sudafed drain for fluid buildup in the middle ear after flying. 4) Please read and follow information included in discharge instructions. Patient Language: Tajik Prescriptions: New czvzwedl-scooyeicg-GV 3.5-10,000-1 mg/mL-unit/mL-% drops,suspension 4 drop EACH EAR Q8H 7 Days Qty: 10 0RF No Action pregabalin 150 mg capsule thyroid (pork) 60 mg tablet Follow-up/Referrals: Bejarano,Carrie Lentz APN [Primary Care Provider] - Time of Disposition: 13:12
== END 2025-01-13 13:15 | disposition home or self-care (01) ==
PROVIDERS: Emergency Provider Nurse Practitioner; PCP Nurse Practitioner Family
DX: H60.93 Unspecified otitis externa, bilateral (principal); F17.210 Nicotine dependence, cigarettes, uncomplicated; F12.90 Cannabis use, unspecified, uncomplicated; E66.9 Obesity, unspecified; Z68.41 Body mass index [BMI] 40.0-44.9, adult
CPT/HCPCS: 99213; G0463

== ENCOUNTER 2025-05-24 12:16 | Emergency (ER) | payer OTHER, SELFPAY ==
[2025-05-24 12:24] VITALS: BP 127/76; PULSE 88; RESP 18; TEMP 36.6; O2SAT 98
[2025-05-24 12:49] LABS: EDSTREPNEGPOS1 Negative (Negative)
--- NOTE | 2025-05-24 13:07 | ED_ITS ---
HPI - URI/Sore Throat General Chief Complaint: Upper Respiratory Infection Stated Complaint: Cough Time Seen by Provider: 05/24/25 12:50 Source: patient and RN notes reviewed Mode of arrival: ambulatory Limitations: no limitations History of Present Illness HPI Narrative: 39-year-old female presents to the [facility] complaining of cough, mucopurulent sputum production, chest congestion, sore throat, congestion, wheezing for approximately 4-5 days. Patient has any fevers, body aches, chills, nausea, vomiting, diarrhea, chest pains, difficulty breathing, any other symptoms. Patient reports her sputum is or productive and thicker than normal. Patient says she has a history of chronic bronchitis. Patient reports she is a daily smoker and also reports smoking marijuana. Patient says she has been using her inhaler with some relief. Patient says the cough has gotten worse. Patient denies any other significant past medical problems. Related Data Home Medications ?Medication ?Instructions ?Recorded ?Confirmed ?Last Taken ?Type pregabalin 150 mg capsule mg 01/13/25 Unknown History thyroid (pork) 60 mg tablet mg 01/13/25 Unknown Histo ry estradiol 1 mg tablet mg 05/24/25 Unknown History Allergies Allergy/AdvReac Type Severity Reaction Status Date / Time No Known Allergies Allergy Unknown Verified 05/24/25 12:30 Review of Systems Review of Systems: CONSTITUTIONAL: Denies fever, chills, or sweats. EYES: Denies visual changes, redness, or discharge. ENT: Denies rhinorrhea, or otalgia. Positive for sore throat and congestion. CARDIOVASCULAR: Denies chest pain, palpitations, or edema. RESPIRATORY: Positive for cough and wheezing. Negative for dyspnea. GASTROINTESTINAL: Denies abdominal pain, nausea, vomiting, or diarrhea. GENITOURINARY: Denies dysuria or hematuria. SKIN: Denies rash or itching. MUSCULOSKELETAL: Denies back pain, joint pain, or myalgia. NEUROLOGIC: Denies headache, numbness, or weakness. PSYCHIATRIC: Denies anxiety or depression. All other systems reviewed are negative, except as documented in HPI. [facility] Past Medical History Medical History Smoker Obesity Surgical History Surgical History History of tubal ligation Social History Social History Smoking packs per day: 1 Smoking cigarettes per day: 20.0 Years smoked: 20 Smoking pack-years: 20.00 Smoking status: Current every day smoker Alcohol intake: current Alcohol use details: 4 PER YEAR Substance use: current Substance use type: marijuana Other substance usage details: DAILY Living arrangements: with family Comments At the time of my signature, I reviewed and agree with the nursing past medical, surgical, social, and family history. There is no relevant family history pertinent to the patient complaint. Exam Narrative: GENERAL: This is a well-nourished, well-developed adult, in no apparent distress. They are non ill-appearing, nontoxic appearing. HEAD: normocephalic, atraumatic. EYES: Sclera clear/white. Conjunctiva normal. Vision is grossly intact. Extraocular movements intact EARS: External ears normal, auditory canals clear and without drainage, TMs normal without perforation. Hearing grossly intact. NOSE: External nose normal with no obvious nasal discharge, nasal turbinates erythematous, no rhinorrhea. THROAT: Mucous membranes moist, posterior pharynx erythematous. Uvula midline. Postnasal drip present. NECK: Neck supple, non-tender without lymphadenopathy, masses or thyromegaly. CARDIOVASCULAR: Regular rate and rhythm without murmurs, gallops, or rubs. RESPIRATORY: End-expiratory wheezes heard throughout. Breath sounds equal bilaterally. No rales, or rhonchi. SKIN: warm, Dry, intact with no suspicious lesions or rash, good texture and turgor. NEURO: awake, alert, and oriented to person, place and time. There were no obvious focal neurologic abnormalities. EXTREMITIES: No joint tenderness, effusion, or edema noted. BACK: Nontender without deformity. Course Course Emergency Course: Portions of this record may have been created with voice recognition software Level of Care: Express Care Visit Vital Signs Vital signs: Vital Signs Temperature 97.8 F 05/24/25 12:24 Pulse Rate 88 05/24/25 12:24 Respiratory Rate 18 05/24/25 12:24 Blood Pressure 127/76 05/24/25 12:24 Pulse Oximetry 98 05/24/25 12:24 Oxygen Delivery Room Air 05/24/25 12:24 Temperature 97.8 F 05/24/25 12:24 Pulse Rate 88 05/24/25 12:24 Respiratory Rate 18 05/24/25 12:24 Blood Pressure 127/76 05/24/25 12:24 Pulse Oximetry 98 05/24/25 12:24 Oxygen Delivery Room Air 05/24/25 12:24 Reviewed MDM - URI/Sore Throat MDM Narrative Medical decision making narrative: Rapid strep negative. Throat culture is pending. Patient likely has bronchitis. Given the increased sputum production mucopurulent drainage along with a history of chronic bronchitis and smoking history, and exam findings will go ahead and treat her with prednisone for course of azithromycin. Also prescribe benzonatate as needed for cough along refilling her albuterol inhaler that she requested. Discussed physical exam findings. Advised supportive measures and signs/symptoms to go to the ER. Pt is appropriate for outpt treatment and f/u. Differential Diagnosis Differential diagnosis: Likely upper respiratory infection, sinusitis, viral infection and pharyngitis Lab Data Attestation: I reviewed the patient's lab results. Labs: Lab Results 05/24/25 Range/Units 12:32 POC Grp A Strep Screen Negative (Negative) Critical Care Time Critical Care Time Critical Care Time: No Discharge Plan Discharge Clinical Impression: Acute purulent bronchitis Patient Disposition: Home Condition: Stable Instructions: Antibiotic Form, Chronic Bronchitis (ED) Additional Instructions: Rapid strep is negative today. A throat culture is pending and will if it is positive for strep you will be contacted. Take prednisone as directed. Use albuterol inhaler as needed for shortness of breath or wheezing. Take azithromycin as directed. Take benzonatate tablets as needed for cough. Tylenol and Motrin as needed for pain or fevers. Follow instructions on bottle. Symptomatic treatment includes: rest, fluids, and increase humidity of the air at home. Follow up with your primary care provider 3-5 days. Go to the ER for worsening symptoms, worsening breathing problems, unable to talk in full sentences, respiratory distress, chest pains, vomiting, uncontrolled fevers, or any other serious concerns. Patient Language: Nigerian Prescriptions: New benzonatate 200 mg capsule 200 mg PO BID PRN (Reason: cough) Qty: 20 0RF azithromycin 250 mg tablet See Rx Instructions .ROUTE .COMPLEX Qty: 6 0RF Rx Instructions: For 250 mg dose pack: take 500 mg today (day 1), then 250 mg for 4 days (days 2-5) prednisone 20 mg tablet 40 mg PO DAILY 5 Days Qty: 10 0RF albuterol sulfate [Ventolin HFA] 90 mcg/actuation HFA aerosol inhaler 2 puff inhalation QID PRN (Reason: shortness of breath or wheezing) Qty: 8.5 0RF No Action pregabalin 150 mg capsule thyroid (pork) 60 mg tablet estradiol 1 mg tablet Follow-up/Referrals: PHYSICIAN NOT ON STAFF,NONSTAFF [Primary Care Provider] Time of Disposition: 13:02
--- OUTSIDE RECORDS SUMMARY | 2025-05-24 21:25 | XMS_ITS | Continuity of Care Document ---
Author Organization 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 Plan of Treatment Reminders Order Date Submit Date Provider Last Modified By Organization Details Last Modified Time Details Appointments None recorded. Lab None recorded. Referral None recorded. Procedures None recorded. Surgeries None recorded. Imaging None recorded. Medication Orders estradiol 0.05 mg/24 hr semiweekly transdermal patch 2024 025 [id number], [address], [place], [place], [id number], 5 17:38:01 Patient TargetsNo targets recorded. Patient InstructionsNo instructions recorded. Reason for Referral None Reported. Problems Name Problem SNOMED Code Status Onset Date Resolution Date Notes Provider Name and Address Organization Details Recorded Time Polycyst ic ovaries Completed 201303/09/2022 Polycysti c ovaries;P ractice ID: 0001 Darline Jakub pratt, [facility] 13:47:18 Obesity [id number] Completed 201303/09/2022 Obesity, unspecifi ed;Practi ce ID: 0001 Darline Jakub pratt, [facility] 13:47:18 Speciali zed medical examinat ion Completed 201303/09/2022 Routine gynecolog ical examinati on;Practi ce ID: 0001 Darline pratt [facility] 2 13:47:18 Screenin g for malignan t neoplasm of cervix Completed 201303/09/2022 Pap Smear;Pra ctice ID: 0001 Darline pratt [facility] 2 13:47:17 Educatio n Completed 201303/09/2022 Counselin g contracep tive managemen t;Practic e ID: 0001 Darline pratt, [facility] 2 13:47:18 Procedur e on genitour inary system Completed 201403/09/2022 Steriliza tion;Prac martin ID: 0001 [facility] 2 13:47:18 Pre-surg vinnie evaluati on Completed 201403/09/2022 Pre-opera tive examinati on, unspecifi ed;Practi ce ID: 0001 [facility] 2 13:47:17 Postoper ative follow-u p visit Completed 201403/09/2022 Follow Up Surgery;Rupa combs ID: 0001 [facility] 2 13:47:18 Syphilis test finding [id number] Completed 201503/09/2022 Encntr screen for infection s w sexl mode of transmiss ;Practice ID: 0001 Darline pratt [facility] 2 13:47:17 Infectio n screenin g Completed 201503/09/2022 Encounter for screening for oth infec/par astc diseases; Practice ID: 0001 Darline pratt [facility] 2 13:47:[address] Concept Completed 201503/09/2022 Encntr for general adult medical exam w/o abnormal findings; Practice ID: 0001 Darline pratt [facility] 2 13:47:[address] Concept Completed 201603/09/2022 Encntr for community health nursing director exam (general) (routine) w/o abn findings; Practice ID: 0001 Darline pratt [facility] 2 13:47:17 Acne [id number] Completed 201603/09/2022 Acne;Marck rded Elsewhere : No Locati on: [facility] So urce: EHR Chron ic: N Practic e ID: 0001 Bill able Time: 01:30:00 PM Darline pratt [facility] 2 13:47:17 Hirsutis m [id number] Completed 201603/09/2022 Hirsutism ;Recorded Elsewhere : No Locati on: [facility] So urce: EHR Chron ic: N Practic e ID: 0001 Bill able Time: 01:30:00 PM Darline Call [facility] 2 13:47:17 Hypothyr oidism [id number] Completed 201603/09/2022 Hypothyro idism, unspecifi ed;Practi ce ID: 0001 Darline Call [facility] 2 13:47:17 Abnormal weight gain [id number] Completed 201603/09/2022 Abnormal weight gain;Prac martin ID: 0001 Darline Call [facility] 2 13:47:17 Pelvic and perineal pain [id number] Completed 201603/09/2022 Pelvic and perineal pain;Prac martin ID: 0001 Darline Call [facility] 2 13:47:17 Problem Notes None recorded. Procedures Surgical History Date Name Laterality Status Provider Name and Address Organization Details Recorded Time 03/25/20 25 I&D completed [facility] [address], [place], [address], [place] [facility] 03/25/2025 14:06:21 07/20/19 23 ROBOTIC ASSISTED HYSTERECTOMY W/BILATERAL SALPINGO-OOPHORE CTOMY (SURG) completed Ligia Cook [facility] 07/23/2022 11:28:31 03/28/20 22 Date of Last Pap Smear completed Darline Call [facility] 05/21/2022 09:35:11 Imaging Results None recorded. Procedure Notes None recorded. Medical Equipment None Reported. Allergies No known drug allergies Medications Name Sig Start Date Stop Date Status Note LastModified by Organization Details LastModified Time cyclobenz aprine 10 mg tablet 03/27 completed Not Available Not Available Not Available amoxicill in 500 mg capsule 03/27 completed Not Available Not Available Not Available Cato Thyroid 60 mg tablet Take 1 tablet every day by oral route. active Not Available Not Available No t Available prednison e 10 mg tablet TAKE 3 TABLETS BY MOUTH DAILY FOR 3 DAYS THEN TAKE 2 TABLETS BY MOUTH DAILY FOR 3 DAYS THEN TAKE 1 TABLET BY MOUTH DAILY FOR 3 DAYS 03/11 completed Not Available Not Available Not Available doxycycli ne hyclate 100 mg capsule TAKE 1 CAPSULE BY MOUTH TWICE DAILY 03/11 completed Not Available Not Available Not Available hydrocodo ne 5 mg-acetam inophen 325 mg tablet TAKE 1 TO 2 TABLETS BY MOUTH EVERY 6 HOURS NEEDED FOR PAIN 03/11 completed Not Available Not Available Not Available Synthroid 150 mcg tablet take 1 tablet by oral route every day 03/13 completed Prescrib ed Elsewher e: No Locat ion: [facility] M odify By: emperatriz coreas DateTime : 12/21/19 17 02:45:00 PM Not Available Not Available Not Available fluconazo le 200 mg tablet Take 1 tablet every other day x 3 doses. 03/27 completed Not Available Not Available Not Available ibuprofen 200 mg capsule take 1 capsule by oral route every 6 hours as needed 03/13 completed Prescrib ed Elsewher e: Yes Loca tion: [facility] odify By: [email or web address] trick En counter DateTime : 10/12/19 15 01:00:00 PM Not Available Not Available Not Available prednison e 20 mg tablet 03/27 completed Not Available Not Available Not Available Synthroid 100 mcg tablet take 1 tablet by oral route every day 03/13 completed Prescrib ed Elsewher e: Yes Loca tion: [facility] odify By: [email or web address] trick En counter DateTime : 12/24/19 14 03:00:00 PM Not Available Not Available Not Available spironola ctone 100 mg tablet TAKE 1 TABLET BY MOUTH DAILY 03/11 completed Not Available Not Available Not Available metronida zole 500 mg tablet Take 1 tablet twice a day by oral route with meals for 7 days. 05/21 completed Not Available Not Available Not Available estradiol 0.05 mg/24 hr semiweekl y transderm al patch APPLY 1 PATCH TOPICALL Y TO THE SKIN 2 TIMES A WEEK 03/31 completed Not Available Not Available Not Available sulfameth oxazole 800 mg-trimet hoprim 160 mg tablet take 1 tablet by oral route every 12 hours 05/21 completed Not Available Not Available Not Available tramadol 50 mg tablet TAKE 1 TABLET BY MOUTH EVERY 8 HOURS NEEDED PAIN. TAKE 500 TO 650 MG OF ACETAMIN OPHEN WITH EACH DOSE. TAKE WITH FOOD active Not Available Not Available No t Available amitripty line 50 mg tablet take 1 tablet by oral route every day at bedtime 10/11 completed Prescrib ed Elsewher e: Yes Loca tion: [facility] odify By: [email or web address] trick En counter DateTime : 02/02/20 14 04:00:00 PM Not Available Not Available Not Available levothyro xine 25 mcg tablet 03/11 completed Not Available Not Available Not Available estradiol 1 mg tablet TAKE 1 TABLET BY MOUTH EVERY DAY active Not Available Not Available No t Available clindamyc in 1 % topical gel APPLY A THIN LAYER TOPICALL Y TO THE AFFECTED AREA TWICE DAILY 03/11 completed Not Available Not Available Not Available amitripty line 10 mg tablet take 1 tablet by oral route 3 times every day 03/13 completed Prescrib ed Elsewher e: Yes Loca tion: [facility] odify By: emperatriz coreas DateTime : 11/27/19 17 01:30:00 PM Not Available Not Available Not Available polyethyl aubrey glycol 3350 17 gram/dose oral powder DISSOLVE 17 GRAMS WITH 8 TO 16 OUNCES OF WATER OR FRUIT JUICE AND CONSUME DAILY TO HELP BOWELS MOVE DAILY. 03/11 completed Not Available Not Available Not Available Vitamin D2 1,250 mcg (50,000 unit) capsule take 1 capsule by oral route every week 03/13 completed Prescrib ed Elsewher e: No [facility] By: emperatriz coreas DateTime : 12/21/19 17 02:45:00 PM Not Available Not Available Not Available metformin ER 500 mg tablet,ex tended release 24 hr TAKE 2 TABLETS BY MOUTH DAILY 03/11 completed Not Available Not Available Not Available doxycycli ne hyclate 100 mg tablet TAKE 1 TABLET BY MOUTH 2 TIMES A DAY 03/11 completed Not Available Not Available Not Available naproxen 500 mg tablet active Not Available Not Available Not Available clindamyc in phosphate 1 % topical solution APPLY A THIN LAYER TO THE AFFECTED AREA(S) BY TOPICAL ROUTE 2-3x TIMES PER WEEK AT HS. Wash off in the AM. 03/11 completed Not Available Not Available Not Available neomycin- polymyxin -hydrocor t 3.5 mg-10,000 unit/mL-1 % ear drops,neeraj p INSTILL 4 DROPS INTO EACH EAR EVERY 8 HOURS FOR 7 DAYS 03/11 completed Not Available Not Available Not Available clindamyc in 1 % lotion APPLY TOPICALL Y TO AXILLAE AND GROIN TWICE DAILY 03/11 completed Not Available Not Available Not Available pregabali n 75 mg capsule TAKE 1 CAPSULE BY MOUTH TWICE DAILY FOR 15 DAYS 03/11 completed Not Available Not Available Not Available pregabali n 150 mg capsule TAKE 1 CAPSULE BY MOUTH TWICE DAILY active Not Available Not Available No t Available thyroid (pork) 15 mg tablet TAKE 3 TABLETS BY MOUTH DAILY 03/11 completed Not Available Not Available Not Available thyroid (pork) 30 mg tablet TAKE 1 TABLET BY MOUTH DAILY 03/11 completed Not Available Not Available Not Available Vitals Date Recorded Body height Body mass index (BMI) Body weight Systolic And Diastolic Provider Name and Address Organization Details Last Updated DateTime 03/11/2025 172.72 cm 47.3 kg/m2 678108.23 g 130/82 mm[Hg] Eveline Mireles [facility] 03/11/2025 15:49:41 Social History Question Answer Notes LastModified by Organizat ion Details LastModified Time Tobacco Smoking Status Current Every Day Smoker Darline Call terence [facility] 03/13/2022 10:33:33 Are You Blind Or Do You Have Difficulty Seeing? No Information not available 03/13/2022 What Is Your Level Of Caffeine Consumption? Occasional Information not available 03/13/2022 How Much Tobacco Do You Chew? None Information not available 03/11/2025 In The 14 Days Before Symptom Onset, Have You Had Close Contact With A Laboratory-confir med COVID-19 While That Case Was Ill? No [email or web address] Information not available 03/11/2025 In The 14 Days Before Symptom Onset, Have You Had Close Contact With A Person Who Is Under Investigation For COVID-19 While That Person Was Ill? No [email or web address] Information not available 03/11/2025 Have You Been To An Area Known To Be High Risk For COVID-19? No [email or web address] Information not available 03/11/2025 Are You Deaf Or Do You Have Serious Difficulty Hearing? No Information not available 03/13/2022 What Type Of Diet Are You Following? REGULAR Information not available 03/13/2022 Do You Use Your Seat Belt Or Car Seat Routinely? Yes Information not available 03/13/2022 Do You Have Smoke And Carbon Monoxide Detectors In Your Home? Yes Information not available 03/13/2022 At What Age Did You Start Smoking Tobacco? 15 Information not available 03/11/2025 How Much Tobacco Do You Smoke? 0.5 PPD [email or web address] Information not available 03/11/2025 Do You Use Sunscreen Routinely? Yes Information not available 03/13/2022 Do You Have Difficulty Walking Or Climbing Stairs? No Information not available 03/13/2022 Sex: Unknown Functional Status Question Answer Note LastModified by Organizat ion Details LastModified Time Do you use any illicit or recreational drugs? No Information not available 03/13/2022 What is your level of alcohol consumption? Occasional Information not available 03/13/2022 Are you able to walk independently without assistance or assistive devices? [email or web address] Information not available 03/13/2022 Are you able to care for yourself independently? Yes Information not available 03/13/2022 Do you have difficulty dressing, bathing, grooming, or toileting? No Information not available 03/13/2022 What is your exercise level? Occasional Information not available 03/13/2022 Mental Status Question Answer Note LastModified by Organization D etails LastModified Time Do you feel stressed (tense, restless, nervous, or anxious, or unable to sleep at night)? [id number] Information not available 03/13/2022 Family History Relationship Description Onset Age of this Age Resolved Age Notes LastModified by Organization Details LastModified Time Father Malignant neoplasm of colon Not available 2021 10:32:13 Maternal Grandmother Malignant neoplasm of colon Not available 2021 10:32:19 Mother Diabetes mellitus Not available 2021 10:32:27 Mother Polycystic ovary syndrome [email or web address] Not available 03/08 11:52:24 Mother Asthma Not available 12/2021 10:32:42 Paternal Grandfather Malignant neoplasm of colon Not available 2021 10:32:52 Paternal Grandmother Malignant neoplasm of colon Not available 2021 10:32:55 Medical History Condition Response History of STI Y Other Y Polycystic ovary syndrome Y Thyroid Problems Y Neurologic/Epilepsy Y Gynecological History Statement/Question Response Abnormal Pap N Flow Heavy Date of LMP 03/01/2022 Was last menstrual period normal N STIs/STDs Y HPV Vaccine N Current Control Method Hysterectom y Age at First Child 21 Are cycles usually normal N Sexually Active? N Menses Monthly Y Age of first menstrual cycle 12 Date of Last Pap Smear 03/28/2022 Sexual Problems? N Desired Control Method LMP Approximate Obstetrics History GPAL:G 3 P 0 0 1 2 Type Value Spontaneous 1 Living 2 Total 3 Past Encounters Encounter ID Performer Location Encounter Start Date Encounter Closed Date Diagnosis/Indication Diagnosis SNOMED-CT Code Diagnosis ICD10 Code Diagnosis IMO Codes Diagnosis Note [id number] [facility] [place] [address] [address] 03/11/2025 15:22:32 03/12/2025 10:15:48 Lesion of vulva 536655478 N90.89 020704 sebaceous appearing cystdiscus sed management optionsopt s for I&D, will RTCvulvar care guidelines discussed Menopausal syndrome 1237 99341 N95.1 [id number] Discussed VMS and management optionsdes ires ERT , R/b/a reviewedrx sent, med check in 4 months Time spent in visit is a total of 25 mins with at least 50% of visit consisting of counseling and review of plan of care. Health Concerns Section Related Observation LastModified by Organization Detai ls LastModified Time None Recorded Concern Status LastModified by Organization Details LastModified Time None Recorded Payers Encounter Date Sequence Insurance Name Policy Number Policy Sorenson Covered Member ID Sorenson Member ID Guarantor Name 03/11/2025 1 [facility] - DOS ON OR AFTER 21 (MEDICAID REPLACEMENT - HMO) Celeste Davis [id number] Celeste Davis Notes Date Note Type Note Provider Name and Address Organization Details Recorded Time 03/11/2025 text/html 39yoPresents for evaluation of lesion on labianoticed cystic lesion on left labia a few weeks agodenies any tenderness/drainag e/odors/etc h/o RAH, BSO 2022 (non-cancerous indications)took oral estradiol tablets for a short period of time, no longer taking for the last yrhaving significant VMS [facility] [address], [place], [address], [facility] 03/12/2025 09:18:28 OBGyn Episode No OBEpisode recorded.
--- OUTSIDE RECORDS SUMMARY | 2025-05-24 21:25 | XMS_ITS | Continuity of Care Document ---
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 Plan of Treatment Reminders Order Date Submit Date Provider Last Modified By Organization Details Last Modified Time Details Appointments None recorded. Lab surgical pathology study 2024 025 [facility] (Lab), [address], [place], [address], 14:49:39 Referral None recorded. Procedures None recorded. Surgeries None recorded. Imaging None recorded. Medication Orders None recorded. Patient TargetsNo targets recorded. Patient InstructionsNo instructions recorded. Reason for Referral None Reported. Results Created Date Observation Date Name Description Value Unit Range Abnormal Flag Note LastModifiedBy Organization Detail LastModifiedTime 03/25/2003/25/2025 SURGI NENO PATHO LOGY surgical pathology SEE RESULT S BELOW CASE REPOR T: Surgi neno Patho logy Repor t Case: [id number] Autho skylar guillen Provi nicola: Karie Leonardo NP Colle cted: 03/25 1440 Order ing Locat ion: [place] Patho logy Recei taye: 03/26 0338 Patho logis t: Jeferson Mackay MD Speci men: Vulva , Vulva r biops y/cys t ----- ----- ----- ----- ----- ----- ----- ----- ----- ----- ----- ----- ----- ----- ----- ----- ----- ---- FINAL DIAGN OSIS: Vulva , biops y: - Fragm ents of anucl eated kerat in debri s. Elect cara madera by Jeferson Mackay MD on 2024 at 1346 CDT ----- ----- ----- ----- ----- ----- ----- ----- ----- ----- ----- ----- ----- ----- ----- ----- ----- ---- CLINI NENO INFOR MATIO N: histo ry of cyst MICRO SCOPI C DESCR IPTIO N: A micro scopi c exami natio n was perfo rmed. A porti on of the testi ng proce ss was perfo rmed at [facility] rn Medic ine Labor atori es site, NMDP1 22. Digit al imagi ng was used in the diagn ostic asses sment of this case. GROSS DESCR IPTIO N: A. Vulva . The speci men is label ed with the patie nt's name and demog raphi cs only. Recei taye in forma dariel is a 1.5 x 1.5 x 0.2 [address] gate of pastce white -cortes tissu e. The entir e speci men is submi tted in one casse tte. Gross ed by Karon reddy Not Available [facility] (Lab) [address], [place], [address], 03/28/2025 14:49:39 Result Notes None recorded. Problems Name Problem SNOMED Code Status Onset Date Resolution Date Notes Provider Name and Address Organization Details Recorded Time Polycyst ic ovaries Completed 201303/09/2022 Polycysti c ovaries;P [facility] 0001 [facility] 13:47:18 Obesity 590298221 Completed 201303/09/2022 Obesity, unspecifi ed;Practi ce ID: 0001 [facility] 13:47:18 Speciali zed medical examinat ion Completed 201303/09/2022 Routine gynecolog ical examinati on;Practi ce ID: 0001 Darline pratt, [facility] 2 13:47:18 Screenin g for malignan t neoplasm of cervix Completed 201303/09/2022 Pap Smear;Pra ctice ID: [address] [facility] 2 13:47:17 Educatio n Completed 201303/09/2022 Counselin g contracep tive managemen t;Practic e ID: [address] [facility] 2 13:47:18 Procedur e on genitour inary system Completed 201403/09/2022 Steriliza tion;Prac martin ID: [address] [facility] 2 13:47:18 Pre-surg vinnie evaluati on Completed 201403/09/2022 Pre-opera tive examinati on, unspecifi ed;Practi ce ID: 0001 [facility] 13:47:17 Postoper ative follow-u p visit Completed 201403/09/2022 Follow Up Surgery;Rupa combs ID: [address] [facility] 2 13:47:18 Syphilis test finding [id number] Completed 201503/09/2022 Encntr screen for infection s w sexl mode of transmiss ;Practice ID: 0001 Darline pratt [facility] 2 13:47:17 Infectio n screenin g Completed 201503/09/2022 Encounter for screening for oth infec/par astc diseases; Practice ID: 0001 Darline pratt [facility] [address] 13:47:[address] Concept Completed 201503/09/2022 Encntr for general adult medical exam w/o abnormal findings; Practice ID: 0001 Darline pratt [facility] 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 2 13:47:17 Acne 74536024 Completed 201603/09/2022 Acne;Marck rded Elsewhere : No Locati on: [facility] So urce: EHR Chron ic: N Practic e ID: 0001 Bill able Time: 01:30:00 PM Darline Call [facility] 2 13:47:17 Hirsutis m [id number] Completed 201603/09/2022 Hirsutism ;Recorded Elsewhere : No Locati on: [facility] So urce: EHR Chron ic: N Practic e ID: 0001 Bill able Time: 01:30:00 PM Darline pratt [facility] 2 13:47:17 Hypothyr oidism [id number] Completed 201603/09/2022 Hypothyro idism, unspecifi ed;Practi ce ID: 0001 Darline pratt [facility] 2 13:47:17 Abnormal weight gain 252740692 Completed 201603/09/2022 Abnormal weight gain;Prac martin ID: 0001 Darline pratt [facility] 2 13:47:17 Pelvic and perineal pain 787926788 Completed 201603/09/2022 Pelvic and perineal pain;Prac martin ID: 0001 Darline Call [facility], [facility] 2 13:47:17 Problem Notes None recorded. Procedures Surgical History Date Name Laterality Status Provider Name and Address Organization Details Recorded Time 03/25/20 25 I&D completed CESAR Joy [address], [place], [address], [facility] 03/25/2025 14:06:21 07/20/19 23 ROBOTIC ASSISTED HYSTERECTOMY W/BILATERAL SALPINGO-OOPHORE CTOMY (SURG) completed Ligia Cook [facility] 07/23/2022 11:28:31 03/28/20 22 Date of Last Pap Smear completed Darline Call [facility] 05/21/2022 09:35:11 Imaging Results None recorded. Procedure Notes None recorded. Medical Equipment None Reported. Allergies No known drug allergies Medications Name Sig Start Date Stop Date Status Note LastModified by Organization Details LastModified Time cyclobenz aprine 10 mg tablet 03/27 completed Not Available Not Available Not Available amoxicill in 500 mg capsule 03/27 completed Not Available Not Available Not Available Fordyce Thyroid 60 mg tablet Take 1 tablet [...] Prescrib ed Elsewher e: No Locat ion: [facility] odify By: [email or web address] coreas DateTime : 12/21/19 17 02:45:00 PM Not Available Not Available Not Available fluconazo le 200 mg tablet Take 1 tablet every other day x 3 doses. 03/27 completed Not Available Not Available Not Available ibuprofen 200 mg capsule take 1 capsule by oral route every 6 hours as needed 03/13 completed Prescrib ed Elsewher e: Yes Loca tion: [facility] odify By: [email or web address] trick En counter DateTime : 10/12/19 15 01:00:00 PM Not Available Not Available Not Available prednison e 20 mg tablet 03/27 completed Not Available Not Available Not Available Synthroid 100 mcg tablet take 1 tablet by oral route every day 03/13 completed Prescrib ed Elsewher e: Yes Loca tion: [facility] odify By: [email or web address] trick En counter [...] Prescrib ed Elsewher e: Yes Loca tion: [facility] odify By: [email or web address] trick En counter [...] Prescrib ed Elsewher e: Yes Loca tion: [facility] odify By: emperatriz coreas DateTime : [...] Prescrib ed Elsewher e: No Locat ion: [facility] odify By: emperatriz coreas DateTime : 12/21/19 [...] and Address Organization Details Last Updated DateTime 03/25/2025 172.72 cm 46.5 kg/m2 240812.27 g 119/76 mm[Hg] Daisy Franco [facility] 03/25/2025 12:53:25 Social History Question Answer Notes LastModified by Organizat ion Details LastModified Time Tobacco Smoking Status Current Every Day Smoker Darline pratt [facility] 03/13/2022 10:33:33 Are You Blind Or Do You Have Difficulty Seeing? No Information not available 03/13/2022 What Is Your Level Of Caffeine Consumption? Occasional Information not available 03/13/2022 How Much Tobacco Do You Chew? None [email or web address] Information not available 03/11/2025 In The 14 Days Before Symptom Onset, Have You Had Close Contact With A Laboratory-confir med COVID-19 While That Case Was Ill? No [email or web address] Information not available 03/11/2025 In The 14 Days Before Symptom Onset, Have You Had Close Contact With A Person Who Is Under Investigation For COVID-19 While That Person Was Ill? No [email or web address] Information not available 03/11/2025 Have You Been To An Area Known To Be High Risk For COVID-19? No [email or web address] Information not available 03/11/2025 Are You Deaf [...] Age Did You Start Smoking Tobacco? 15 [email or web address] Information not available 03/11/2025 How Much Tobacco Do You Smoke? 0.5 PPD [email or web address] Information not available 03/11/2025 Do You Use [...] anxious, or unable to sleep at night)? [id number] Information not available 03/13/2022 Family History Relationship [...] available 2021 10:32:55 Medical History Condition Response Other Y Neurologic/Epilepsy Y History of STI Y Polycystic ovary syndrome Y Thyroid Problems Y Gynecological History Statement/Question Response Abnormal Pap [...] ICD10 Code Diagnosis IMO Codes Diagnosis Note [id number] CESAR Joy [place] [address] [address] 03/11/2025 15:22:32 03/12/2025 10:15:48 Lesion of vulva 648204095 N90.89 921770 sebaceous appearing cystdiscus sed management optionsopt s for I&D, will RTCvulvar care guidelines discussed Menopausal syndrome 1237 07115 N95.1 [id number] Discussed VMS and management optionsdes ires ERT , R/b/a reviewedrx sent, med check in 4 months Time spent in visit is a total of 25 mins with at least 50% of visit consisting of counseling and review of plan of care. [id number] CESAR Joy [place] [address] [address] 03/25/2025 11:52:13 03/25/2025 15:34:44 Sebaceous cyst of skin [id number] L72.3 63766 R/b of I&D discussed with pt and consent signedI&D performed (see procedure note)she tolerated the procedure wellprecau tions and care instructio ns provided Time spent in visit is a total [...] Member ID Sorenson Member ID Guarantor Name 03/25/2025 1 [facility] ON OR AFTER 01/05/21 (MEDICAID REPLACEMENT - HMO) Celeste Davis [id number] Celeste Davis Notes Date Note Type Note Provider Name a nd Address Organization Details Recorded Time 03/25/2025 text/html 39yohere today for I&D of vulvar cyst CESAR Joy [address], [place], [address], [facility] 03/25/2025 15:16:43 OBGyn Episode No OBEpisode recorded.
--- OUTSIDE RECORDS SUMMARY | 2025-05-24 21:25 | XMS_ITS | Data Portability ---
Author Organization [facility] [place] Address [address] [place] [address] Care Team Providers Care Operator Helper Name Role Phone GALINDO, SARAH Primary Care Provider Assessment No assessment recorded. Plan of Treatment Reminders Order Date Submit Date Provider Last Modified By Organization Details Last Modified Time Details Appointments None recorded. Lab surgical pathology study 2024 025 [facility] (Lab), [address], [place], [address], 5 14:49:39 Referral None recorded. Procedures None recorded. Surgeries None recorded. Imaging None recorded. Medication Orders estradiol 0.05 mg/24 hr semiweekly transdermal patch 2024 025 [facility] #[id number], [address], [place], [place], [id number], 5 17:38:01 estradiol 1 mg tablet [id number] [facility] #[id number], [address], [place], [place], [id number], 5 15:50:29 Patient TargetsNo targets recorded. Patient InstructionsNo instructions recorded. Reason for Referral None Reported. Results Created Date Observation Date Name Description Value Unit Range Abnormal Flag Note LastModifiedBy Organization Detail LastModifiedTime 03/25/2003/25/2025 SURGI NENO PATHO LOGY surgical pathology SEE RESULT S BELOW CASE REPOR T: Surgi neno Patho logy Repor t Case: [id number] Autho juliannajerrica wilmer Provi nicola: Karie Leonardo NP Colle cted: [...] ng proce ss was perfo rmed at [facility] rn Medic ine Labor atori es site, NMDP1 22. Digit al imagi ng was used in the diagn ostic asses sment of this case. GROSS DESCR IPTIO N: A. Vulva . The speci men is label ed with the patie nt's name and demog raphi cs only. Recei taye in forma dariel is a 1.5 x 1.5 x 0.2 cm aggre gate of pasty , white -cortes tissu e. The entir e speci men is submi tted in one casse tte. Gross ed by Karon reddy Not Available [facility] (Lab) [address], [place], [address], 03/28/2025 14:49:39 Result Notes None recorded. Problems Name Problem SNOMED Code Status Onset Date Resolution Date Notes Provider Name and Address Organization Details Recorded Time Polycyst ic ovaries Completed 201303/09/2022 Polycysti c ovaries;P ractice ID: 0001 Darline Call [facility], [facility] 2 13:47:18 Obesity 287578042 Completed 201303/09/2022 Obesity, unspecifi ed;Practi ce ID: 0001 Darline Call [facility] 2 13:47:18 Speciali zed medical examinat ion Completed 201303/09/2022 Routine gynecolog ical examinati on;Practi ce ID: 0001 Darline Call [facility], [facility] 2 13:47:18 Screenin g for malignan t neoplasm of cervix Completed 201303/09/2022 Pap Smear;Pra ctice ID: 0001 Darline Call [facility] 2 13:47:17 Educatio n Completed 201303/09/2022 Counselin g contracep tive managemen t;Practic e ID: 0001 Darline pratt, [facility] 2 13:47:18 Procedur e on genitour inary system Completed 201403/09/2022 Steriliza tion;[facility] 13:47:18 Pre-surg vinnie evaluati on Completed 03/03/ 2015 03/09/2022 Pre-opera tive examinati on, unspecifi ed;Practi ce ID: 0001 Darline pratt [facility] 2 13:47:17 Postoper ative follow-u p visit Completed 201403/09/2022 Follow Up Surgery;P ractice ID: 0001 Darline pratt [facility] 2 13:47:18 Syphilis test finding [id number] Completed 201503/09/2022 Encntr screen for infection s w sexl mode of transmiss ;Practice ID: 0001 Darline pratt [facility] 2 13:47:17 Infectio n screenin g Completed 201503/09/2022 Encounter for screening for oth infec/par astc diseases; Practice ID: 0001 Darline pratt [facility] 2 13:47:[address] Concept Completed 201503/09/2022 Encntr for general adult medical exam w/o abnormal findings; Practice ID: 0001 Darline pratt [facility] 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 2 13:47:17 Acne [id number] Completed 201603/09/2022 Acne;Marck rded Elsewhere : No Locati on: [facility] So urce: EHR Chron ic: N Practic e ID: 0001 Bill able Time: 01:30:00 PM Darline pratt [facility] 2 13:47:17 Hirsutis m [id number] Completed 201603/09/2022 Hirsutism ;Recorded Elsewhere : No Locati on: [facility] So urce: EHR Chron ic: N Practic e ID: 0001 Bill able Time: 01:30:00 PM Darline Call [facility] 2 13:47:17 Hypothyr oidism 84894591 Completed 201603/09/2022 Hypothyro idism, unspecifi ed;Practi ce ID: 0001 Darline [facility] 2 13:47:17 Abnormal weight gain 157740823 Completed 201603/09/2022 Abnormal weight gain;Prac martin ID: 0001 Darline Call [facility] 2 13:47:17 Pelvic and perineal pain 851491509 Completed 201603/09/2022 Pelvic and perineal pain;Prac martin ID: 0001 Darline [facility] 2 13:47:17 Problem Notes None recorded. Procedures Surgical History Date Name Laterality Status Provider Name and Address Organization Details Recorded Time 03/25/20 25 I&D completed CESAR Joy [address], [place], [address], [facility] 03/25/2025 14:06:21 07/20/19 23 ROBOTIC ASSISTED HYSTERECTOMY W/BILATERAL SALPINGO-OOPHORE CTOMY (SURG) completed Ligia Cook [facility] 07/23/2022 11:28:31 03/28/20 22 Date of Last Pap Smear completed [facility] 05/21/2022 09:35:11 Imaging Results None recorded. Procedure Notes None recorded. Medical Equipment None Reported. Allergies No known drug allergies Medications Name Sig Start Date Stop Date Status Note LastModified by Organization Details LastModified Time cyclobenz aprine 10 mg tablet 03/27 completed Not Available Not Available Not Available amoxicill in 500 mg capsule 03/27 completed Not Available Not Available Not Available [place] Thyroid 60 mg tablet Take 1 tablet [...] Prescrib ed Elsewher e: No Locat ion: [facility] odify By: emperatriz coreas DateTime : 12/21/19 17 02:45:00 PM Not Available Not Available Not Available fluconazo le 200 mg tablet Take 1 tablet every other day x 3 doses. 03/27 completed Not Available Not Available Not Available ibuprofen 200 mg capsule take 1 capsule by oral route every 6 hours as needed 03/13 completed Prescrib ed Elsewher e: Yes Loca tion: [facility] odify By: [email or web address] treyk En counter DateTime : 10/12/19 15 01:00:00 PM Not Available Not Available Not Available prednison e 20 mg tablet 03/27 completed Not Available Not Available Not Available Synthroid 100 mcg tablet take 1 tablet by oral route every day 03/13 completed Prescrib ed Elsewher e: Yes Loca tion: [facility] odify By: kmkirkpa trick En counter DateTime [...] Prescrib ed Elsewher e: Yes Loca tion: [facility] odify By: kmkirkpa trick En counter DateTime [...] Prescrib ed Elsewher e: Yes [facility] By: emperatriz coreas DateTime : [...] Prescrib ed Elsewher e: No Locat ion: [facility] odify By: emperatriz coreas DateTime : 12/21/19 [...] and Address Organization Details Last Updated DateTime 07/13/2022 172.72 cm 40.9 kg/m2 708347.35 g 125/77 mm[Hg] [facility] 07/13/2022 09:42:30 Date Recorded Body height Body mass index (BMI) Body weight Systolic And Diastolic Provider Name and Address Organization Details Last Updated DateTime 07/27/2022 172.72 cm 41.8 kg/m2 643544.9 g 124/79 mm[Hg] [facility] 07/27/2022 09:51:22 Date Recorded Body height Body mass index (BMI) Body weight Systolic And Diastolic Provider Name and Address Organization Details Last Updated DateTime 03/11/2025 172.72 cm 47.3 kg/m2 464046.23 g 130/82 mm[Hg] Eveline Mireles [facility] 03/11/2025 15:49:41 Date Recorded Body height Body mass index (BMI) Body weight Systolic And Diastolic Provider Name and Address Organization Details Last Updated DateTime 03/25/2025 172.72 cm 46.5 kg/m2 727192.27 g 119/76 mm[Hg] Daisy Franco [facility] 03/25/2025 12:53:25 Social History Question Answer Notes LastModified by Organizat ion Details LastModified Time Tobacco Smoking Status Current Every Day Smoker aDrline Call terence, [facility] 03/13/2022 10:33:33 Are You Blind Or Do You Have Difficulty Seeing? No Information not available 03/13/2022 What Is Your Level Of Caffeine Consumption? Occasional Information not available 03/13/2022 How Much Tobacco Do You Chew? None [email or web address] Information not available 03/11/2025 In The 14 Days Before Symptom Onset, Have You Had Close Contact With A Laboratory-confir med COVID-19 While That Case Was Ill? No Information not available 03/11/2025 In The 14 Days Before Symptom Onset, Have You Had Close Contact With A Person Who Is Under Investigation For COVID-19 While That Person Was Ill? No Information not available 03/11/2025 Have You Been To An Area Known To Be High Risk For COVID-19? No [email or web address] Information not available 03/11/2025 Are You Deaf [...] Age Did You Start Smoking Tobacco? 15 [email or web address] Information not available 03/11/2025 How Much Tobacco Do You Smoke? 0.5 PPD [email or web address] Information not available 03/11/2025 Do You Use [...] anxious, or unable to sleep at night)? [id number] Information not available 03/13/2022 Family History Relationship [...] ICD10 Code Diagnosis IMO Codes Diagnosis Note [id number] Kailey Kelly [facility] [address] [address] 03/13/2022 10:14:51 03/13/2022 12:42:03 Cyst of ovary [id number] N83.209 Today we agreed on updated more detailed TVUS (no CT scan results present for today's visit).She is doing well now & rectal bleeding has resolved.S he has no pain from this issue but does feel the cyst might have effected this last period.She has been referred to her PCP/GI specialist per pt. Ovarian torsion is a condition that occurs when an ovary twists around the ligaments that hold it in place. This twisting can cut off blood flow to the ovary and fallopian tube. Ovarian torsion can cause severe pain and other symptoms because the ovary is not receiving enough blood. These are most common in ovarian cysts that are greater than 4cm but is still a risk for smaller cysts as well. Please head to the nearest ED/Urgent Care facility if you experience the following symptoms of ovarian torsion: nauseaseve re pelvic painvomiti ngfeverabn ormal bleeding Patient is to contact office or go to nearest ED/Urgent care if fever >/= 100.1, pain, excessive bleeding, unusual drainage or swelling in area of concern; or experienci ng worsening sx's or new onset of concerning sx's. Understand ing verbalized . All questions answered to patient satisfacti on.Will schedule US, US f/u with combined WWE Time spent in visit is a total of 30 mins with at least 50% of visit consisting of counseling and review of plan of care. Vaginitis 68878976 N76.0 Diflucan sent for yeast from abx use. Counseled on medication R/B's, Most common side effects, & use. All questions were answered to patient satisfacti on. [id number] Drew Lisa MD [place] [address] [address] 03/21/2022 17:38:12 03/22/2022 09:35:12 Cyst of right ovary [id number] 6158735 N83.291 Cyst of left ovary 09009 77903 7763570 N83.292 [id number] Kailey Kelly , [facility] [address] [address] 03/28/2022 10:55:17 03/28/2022 17:45:07 Gynecologic examination 10439201 Z01.419 Take Calcium with Vitamin D 1200mg daily if not receiving in daily diet. It is strongly advised to have an annual flu shot and up can obtain at most pharmacies . If you have not had a TDap shot in the last 10 years you should obtain one as well. Discussed with patient & provided with informatio n regarding Gardisil vaccine to prevent the 4 strains for HPV that cause cervical cancer if under age 26. Encourage safe sexual practices, to use condoms and limit partners if not already in a monogamous relationsh ip. Do monthly self breast exams. Have mammogram yearly or every other year depending on family history. BRCA testing is now available for patients with strong genetic history of female cancer. If interested contact the office. Engage in daily exercise of low impact aerobic exercise 45-60 minutes 4-5 times weekly. Avoid tobacco and illicit drugs as well as using moderation with alcohol intake less than 1-2 8 oz beverages daily. This lifestyle behavior pattern will lead to less health conditions and longer life span. If BMI greater than 25 weight watchers or dietary consult advised. Patient received above instructio ns, and questions have been answered. If you have any questions please call or respond to this email. Patient was made aware of the patient portal and may obtain a paper copy of today's plan if desired. Hidradenit is suppurativa 29595276 L73.2 Menorrhagia 525438543 N8 3.291 consult for symptomati c right ovarian cyst cluster & menorrhagi a optionsWan ts to consider Endoablati on/Other surgical options.Do es not prefer hormonal contracept ion (has tubal) for these issues but this was discussed as possible options. ED Precaution s:Patient is to contact office or go to nearest ED/Urgent care if fever >/= 100.1, pain, excessive bleeding, unusual drainage or swelling in area of concern; or experienci ng worsening sx's or new onset of concerning sx's. Understand ing verbalized . All questions answered to patient satisfacti on. Ovarian torsion is a condition that occurs when an ovary twists around the ligaments that hold it in place. This twisting can cut off blood flow to the ovary and fallopian tube. Ovarian torsion can cause severe pain and other symptoms because the ovary is not receiving enough blood. These are most common in ovarian cysts that are greater than 4cm but is still a risk for smaller cysts as well. Please head to the nearest ED/Urgent Care facility if you experience the following symptoms of ovarian torsion: nauseaseve re pelvic painvomiti ngfeverabn ormal bleeding [id number] Drew Lisa MD [place] [address] [address] 04/09/2022 09:39:00 04/09/2022 10:53:10 Hidradenitis suppurativa 96428676 L73.2 Pain in pelvis 71208716 R10.2 Dysmenorrhea 648794453 N 94.6 Menorrhagia 067823718 N9 2.0 Cyst of ovary 25944121 N 83.209 Premenstru al tension syndrome 95110066 N94.3 this patient is a 36-year-ol d female presents for follow-up on ovarian cyst and ultrasound results. Patient has multiple complex problems. She has dysmenorrh ea, pelvic pain, menorrhagi a, premenstru al dysphoric disorder, hidradenit is suppurativ a , ovarian cyst. we spoke in detail about each of these problems. I presented her with treatment options. We talked about risks and benefits the associated treatment options with each of these problems. We spent over 40 minutes face-to-fa ce. More than 50% was counseling . We talked about surgical treatment options including endometria l ablation, ovarian cystectomy , total robotic hysterecto my and bilateral salpingo-o ophorectom y, talked about the risks benefits taking ovaries out. Talked about observatio n of all these problems. Talked about treating skin disorders. Talked about her treatment. We agreed to start treatment on her skin. We agreed to 2 weeks of Bactrim and then daily doxycyclin e. She return to discuss treatment plan. [id number] Drew Lisa MD [facility] [address],[place] [address] 05/17/2022 09:28:28 05/17/2022 10:41:21 Cyst of right ovary [id number] 8351716 N83.291 N83.292 N94.6 [id number] Kailey Kelly [facility] [address],[place] [address] 05/21/2022 09:24:28 05/21/2022 12:42:23 Venereal disease screening 977059906 Z11.3 Here today for PILAR for recent +STD result.Alden atedAbstai nedPartner treatment (no longer with person)Saf e sex counseling provided. Time spent in visit is a total of 15 mins with at least 50% of visit consisting of counseling and review of plan of care. [id number] Drew Lisa MD [place] [address],[place] [address] 07/13/2022 09:28:11 07/13/2022 14:31:36 Menorrhagia 092888261 N92.0 Dysmenorrhea 869251790 N 94.6 this patient is a 36-year-ol d female with severe menorrhagi a and dysmenorrh ea. We have agreed to perform robotic assisted hysterecto my with bilateral salpingo-o ophorectom y. She understand s the risks, benefits, and alternativ es. She has completed informed consents process and is ready to proceed. [id number] Drew Lisa MD [place] [address],[place] [address] 07/24/2022 09:40:22 07/24/2022 09:43:12 [id number] Drew Lisa MD [place] [address],[place] [address] 07/27/2022 09:34:03 07/30/2022 15:07:29 Menopausal symptom 26004687 N95.1 this patient is a 36-year-ol d female who presents for postop follow-up. She is status post Robotic hysterecto my bilateral salpingect fortunato. she has no complaints . She recovering normally. Her incisions are clean dry and intact. [id number] CESAR Joy [facility] [address] [address] 03/11/2025 15:22:32 03/12/2025 10:15:48 Lesion of vulva 149245043 N90.89 587404 sebaceous appearing cystdiscus sed management optionsopt s for I&D, will RTCvulvar care guidelines discussed Menopausal syndrome 1237 26159 N95.1 [id number] Discussed VMS and management optionsdes ires ERT , R/b/a reviewedrx sent, med check in 4 months Time spent in visit is a total of 25 mins with at least 50% of visit consisting of counseling and review of plan of care. [id number] CESAR Joy [facility] [address] [address] 03/25/2025 11:52:13 03/25/2025 15:34:44 Sebaceous cyst of skin 585372726 L72.3 91028 R/b of I&D discussed with pt and [...] LastModified Time None Recorded Advance Directives Directive None Recorded Payers Insurance Date Sequence Insurance Name Policy Number Policy Sorenson Covered Member ID Sorenson Member ID Guarantor Name 03/25/2025 1 [facility] - DOS ON OR AFTER 21 (MEDICAID REPLACEMENT - HMO) Celeste Davis [id number] Celeste Davis Notes Date Note Type Note Provider Name and Address Organization Details Recorded Time 07/13/2022 text/html this patient is a 36-year-old female with severe menorrhagia and dysmenorrhea. We have agreed to perform robotic assisted hysterectomy with bilateral salpingo-oophorect fortunato. She understands that she is required to take estrogen until she is 52. The patient understands the procedure. The procedure was described to the patient in great detail. the patient also understands the risks. The risks were also explained in detail. She understands that injuries May occur during surgery. She understands these injuries can result in hospitalization, more surgery, and severe illness. She understands there is risk of hemorrhage and infection. Drew Lisa MD [address], [place], [address], [facility] 07/13/2022 12:07:07 07/27/2022 text/html this patient is a 36-year-old female who presents for postop follow-up. She is status post Robotic hysterectomy bilateral salpingectomy. she has no complaints. She recovering normally. Her incisions are clean dry and intact. Drew Lisa MD [address], [place], [address], [facility] 07/27/2022 17:27:58 03/11/2025 text/html 39yoPresents for evaluation of lesion on labianoticed cystic lesion on left labia a few weeks agodenies any tenderness/drainag e/odors/etc h/o RAH, BSO 2022 (non-cancerous indications)took oral estradiol tablets for a short period of time, no longer taking for the last yrhaving significant VMS CESAR Joy [address], [place], [address], [facility] 03/12/2025 09:18:28 03/25/2025 text/html 39yohere today for I&D of vulvar cyst CESAR Joy [address], [place], [address], [facility] 03/25/2025 15:16:43 OBGyn Episode Ob Episode Information Episode Created Date Number of Fetuses Patient Bloodtype Patient rh Status Prepregnancy Weight lbs Domestic Partner Domestic Partner Phone Father Name Wire Machine Cutter Status 03/13/20 22 1 CLOSED Fetus Data First Name Last Name Admitted to NICU Weight (g) Sex Living Outcome Pediatric Complications Fetus ID Race Codes Race Delivery Type , Spontane ous [id number] Hugo Calculation Initial Hugo Date Initial Exam Date Initial Exam Provider Initial Ultrasound Date Last Menstrual Period Date Ultra Sound Weeks Gestation 0 Eighteen To Twenty Week Hugo Update Ultra Sound Date Fundal Height At Umbil Quickening Date Ultra Sound Latest Weeks Gestation Final Hugo Confirmed By Final Hugo Confirmed Date Final Hugo Date Ultra Sound Latest Days Gestation 0 0 Menstrual History Last Menstrual Date Menses Monthly On Bcp Conception Prior Menses Frequency Hcg Plus Date Menarche Onset Age Delivery Information Delivery Date Delivery Type Labor Anesthesia Weeks Gestation Incision Type Labor Labor Length Hrs Delivered By Post Complications Tubal Sterilization Discharge Date Comments 0 Discharge Information Feeding Method Contraceptive Method Maternal HG B and HCT Levels Ob Episode Information Episode Created Date Number of Fetuses Patient Bloodtype Patient rh Status Prepregnancy Weight lbs Domestic Partner Domestic Partner Phone Father Name Wire Machine Cutter Status 03/13/20 22 1 CLOSED Fetus Data First Name Last Name Admitted to NICU Weight (g) Sex Living Outcome Pediatric Complications Fetus ID Race Codes Race Delivery Type M Vaginal Delivery Hugo Calculation Initial Hugo Date Initial Exam Date Initial Exam Provider Initial Ultrasound Date Last Menstrual Period Date Ultra Sound Weeks Gestation 0 Eighteen To Twenty Week Hugo Update Ultra Sound Date Fundal Height At Umbil Quickening Date Ultra Sound Latest Weeks Gestation Final Hugo Confirmed By Final Hugo Confirmed Date Final Hugo Date Ultra Sound Latest Days Gestation 0 0 Menstrual History Last Menstrual Date Menses Monthly On Bcp Conception Prior Menses Frequency Hcg Plus Date Menarche Onset Age Delivery Information Delivery Date Delivery Type Labor Anesthesia Weeks Gestation Incision Type Labor Labor Length Hrs Delivered By Post Complications Tubal Sterilization Discharge Date Comments 2 Discharge Information Feeding Method Contraceptive Method Maternal HG B and HCT Levels Ob Episode Information Episode Created Date Number of Fetuses Patient Bloodtype Patient rh Status Prepregnancy Weight lbs Domestic Partner Domestic Partner Phone Father Name Wire Machine Cutter Status 03/13/20 22 1 CLOSED Fetus Data First Name Last Name Admitted to NICU Weight (g) Sex Living Outcome Pediatric Complications Fetus ID Race Codes Race Delivery Type M [id number] Vaginal Delivery Hugo Calculation Initial Hugo Date Initial Exam Date Initial Exam Provider Initial Ultrasound Date Last Menstrual Period Date Ultra Sound Weeks Gestation 0 Eighteen To Twenty Week Hugo Update Ultra Sound Date Fundal Height At Umbil Quickening Date Ultra Sound Latest Weeks Gestation Final Hugo Confirmed By Final Hugo Confirmed Date Final Hugo Date Ultra Sound Latest Days Gestation 0 0 Menstrual History Last Menstrual Date Menses Monthly On Bcp Conception Prior Menses Frequency Hcg Plus Date Menarche Onset Age Delivery Information Delivery Date Delivery Type Labor Anesthesia Weeks Gestation Incision Type Labor Labor Length Hrs Delivered By Post Complications Tubal Sterilization Discharge Date Comments 7 Discharge Information Feeding Method Contraceptive Method Maternal HG B and HCT Levels
== END 2025-05-24 13:10 | disposition home or self-care (01) ==
DX: J20.9 Acute bronchitis, unspecified (principal); F17.210 Nicotine dependence, cigarettes, uncomplicated; F12.90 Cannabis use, unspecified, uncomplicated; E66.9 Obesity, unspecified; Z68.42 Body mass index [BMI] 45.0-49.9, adult
CPT/HCPCS: 87081; 87880; 99213; G0463